=== PATIENT | male | born 1940 | race Caucasian/White ===

== ENCOUNTER 2016-09-01 11:22 | Day surgery (SDC) | payer OTHER ==
[~2016-09-01] VITALS: Ht 165.1 cm; Wt 83.5 kg
[~2016-09-01 11:22] MED LIST: AMLO-147 PO; AMLO5TAB4 PO; ATOR40TA68 PO; BENA40TA54 PO; MONT10TA24 PO; PANT40TA4 PO; PRED20TA PO
[2016-09-01] MEDS ORDERED: ALBU18HF INHALATION (11:53)
[2016-09-01] MEDS ORDERED: CETI5SOL PO (11:53)
[2016-09-01] MEDS ORDERED: PYRI50TA80 PO (11:53)
[2016-09-01] MEDS ORDERED: CYAN500T46 PO (11:53)
[2016-09-01 11:56] VITALS: Ht 165.1 cm; Wt 83.5 kg
[2016-09-01 12:17] VITALS: BP 167/78; PULSE 67; RESP 18
[2016-09-01] MEDS ORDERED: PROPOFOL 40 ML ONE (12:35)
[2016-09-01 13:15] VITALS: BP 146/85; PULSE 62; RESP 20
--- NOTE | 2016-09-01 13:34 | GILP ---
DATE OF PROCEDURE: 09/01/2016 NAME OF PROCEDURE: Esophagogastroduodenoscopy and biopsy. SURGEON: Radha Wray MD PREOPERATIVE DIAGNOSIS: Abdominal pain. POSTOPERATIVE DIAGNOSES: 1. Hiatal hernia. 2. Gastroesophageal reflux disease. 3. Gastritis. 4. 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 5. Nodule on the gastric antrum and biopsies were taken for histopathology. INDICATION FOR THE PROCEDURE: Mr. Andreea Diaz is a 76-year-old male patient who had upper a bdominal pain and nausea not responding to therapy. The patient was scheduled for endoscopic examin [facility] for further evaluation. The procedure and possible complications are well explained to the patient and the family and consen t was obtained. DESCRIPTION OF PROCEDURE: Under the influence of anesthesia, the gastroscope was carefully introduc ed into the esophagus and under direct vision, it was advanced to the stomach and through the pyloru s into the duodenal bulb and descending duodenum. FINDINGS: ESOPHAGUS: The patient had a hiatal hernia and gastroesophageal reflux disease. STOMACH: He had gastritis. He had ulcerative polyp on the gastric antrum and multiple biopsies wer e taken for histopathology. The patient also had a nodule in the gastric antrum and biopsies were t aken. DUODENUM: Normal. He tolerated the procedure very well and there was no complication from the procedure. At the end o f the procedure, he was awake with stable vital signs and he was discharged home to the care of his family. IMPRESSION: Please see postoperative diagnoses. PLAN: 1. Pantoprazole 40 mg p.o. q.a.m. 2. Zantac 300 mg p.o. at bedtime. 3. Await histopathology reports. Dictated By: RADHA REYES/ANDREE Conf#: [id number] DID#: [id number] CC: RADHA WRAY MD;*EndCC*
== END 2016-09-01 13:44 | disposition home or self-care (01) ==
LOC: GIL 11:22
PROVIDERS: ATTEND Internal Medicine Gastroenterology
DX: K29.30 Chronic superficial gastritis without bleeding (principal); K31.7 Polyp of stomach and duodenum; K21.9 Gastro-esophageal reflux disease without esophagitis; E66.9 Obesity, unspecified; Z68.30 Body mass index [BMI] 30.0-30.9, adult
CPT/HCPCS: 43239; 88305; 88312; Z7610

== ENCOUNTER 2016-09-24 16:50 | Emergency (ER) | payer OTHER ==
[~2016-09-24] VITALS: Wt 86.0 kg
[~2016-09-24 16:50] MED LIST changes: +ALBU18HF INHALATION; -AMLO5TAB4 PO; +CETI5SOL PO; +CYAN500T46 PO; -PRED20TA PO; +PYRI50TA80 PO
--- NOTE | 2016-09-24 17:13 | ERA ---
ER Documentation Chief Complaint Date/Time DATE: 09/24/16 TIME: 17:12 Chief Complaint SOB, WHEEZING, COUGH, CHEST PAIN WITH COUGH HPI The patient is a 76-year-old male, presenting to the ER because of shortness of breath for the last 3 days. He went to the clinic and was treated with Levaquin and prednisone. He has intermittent, nonproductive cough. He complains of chest pain that is associated with cough . He denies chest pain with exertion vomiting or diaphoresis. He denies abdominal pain, vomiting, dysuria, diarrhea. He does not smoke, drink Past medical history: Asthma, hypertension, dyslipidemia Past surgical history: None ROS All systems reviewed and are negative except as per history of present illness. Medications Home Meds Active Scripts Amlodipine Besylate* (Amlodipine Besylate*) 10 Mg Tablet, 10 MG PO DAILY, #20 TAB Prov:CORBIN LEWIS DO 11/05/15 Montelukast Sodium* (Montelukast Sodium*) 10 Mg Tablet, 10 MG PO QHS, #30 TAB Prov:SARAH REDDY 05/25/15 Pantoprazole* (Pantoprazole*) 40 Mg Tabec, 40 MG PO DAILY@06 for 30 Days Prov:SARAH REDDY 05/25/15 Benazepril Hcl* (Lotensin*) 40 Mg Tab, 40 MG PO DAILY for 30 Days, TAB Prov:SARAH REDDY 05/25/15 Reported Medications Fluticasone Propionate* (Fluticasone Propionate* Nasal) 50 Mcg/[place]man - 16 Gm [place].susp, 1 SPRAY NASAL BID, #1 BOTTLE TO EACH NOSTRIL 09/24/16 Cetirizine Hcl* (Cetirizine Hcl*) 10 Mg Tablet, 10 MG PO DAILY, #30 TAB 09/24/16 Ranitidine Hcl* (Ranitidine Hcl*) 300 Mg Tablet, 300 MG PO HS, #30 TAB 09/24/16 Ipratropium-Albuterol (Ipratropium-Albuterol) 0.5-3 Mg/3 Ml Ampul.neb, 3 ML INHALATION QID, #30 VIAL 09/24/16 Albuterol Sulfate* (Ventolin HFA*) 18 Gm Hfa.aer.ad, 2 PUFF INHALATION Q4H, #1 INHALER 09/01/16 Discontinued Reported Medications Cyanocobalamin* (Vitamin B12*) 500 Mcg Tab, 500 MCG PO DAILY, TAB 09/01/16 Pyridoxine Hcl (Vitamin B6) 50 Mg Tab, 50 MG PO, TAB 09/01/16 Cetirizine Hcl* (Cetirizine Hcl*) 5 Mg/5 Ml Solution, 10 MG PO DAILY, #300 ML 09/01/16 Atorvastatin* (Atorvastatin*) 40 Mg Tablet, 40 MG PO QHS, #30 TAB 11/05/15 Allergies Allergies: Coded Allergies: Penicillins (Verified Allergy, Unknown, 09/24/16) PMhx/Soc History of Surgery: No Anesthesia Reaction: No Hx Neurological Disorder: No Hx Respiratory Disorders: Yes (asthma took inhaler 08/31) Hx Cardiac Disorders: Yes (htn, high chol) Hx Psychiatric Problems: No Hx Miscellaneous Medical Probl: No Hx Alcohol Use: No Hx Substance Use: No Hx Tobacco Use: No Physical Exam Vitals Vital Signs Date Time Temp Pulse Resp B/P Pulse Ox O2 Delivery O2 Flow Rate FiO2 09/24/16 20:38 97.8 70 14 159/94 97 Room Air 09/24/16 20:36 98.2 67 17 144/87 100 Room Air 09/24/16 19:25 98.2 67 17 144/87 100 Room Air 09/24/16 18:17 Nasal Cannula 2.0 09/24/16 18:17 Nasal Cannula 2 09/24/16 17:59 65 20 99 21 09/24/16 16:54 98.1 72 19 161/75 97 Physical Exam Const: No acute distress. Head: Atraumatic. Eyes: Normal Conjunctiva. ENT: Normal External Ears, Nose and Mouth. Neck: Full range of motion. No meningismus. Resp: Mild bilateral expiratory wheezes Cardio: Regular rate and rhythm, no murmurs. Abd: Soft, non distended, normal bowel sounds, non tender. Skin: No petechiae or rashes. Back: No midline or flank tenderness. Ext: No cyanosis, or edema. Neur: Awake and alert. No focal deficit Psych: Normal Mood and Affect. Result Diagram: 09/24/16 1805 09/24/16 1805 Results 24 hrs Laboratory Tests Test 09/24/16 18:05 09/24/16 21:12 White Blood Count 11.110^3/ul Red Blood Count 4.7410^6/ul Hemoglobin 14.1g/dl Hematocrit 41.0% Mean Corpuscular Volume 86.5fl Mean Corpuscular Hemoglobin 29.7pg Mean Corpuscular Hemoglobin Concent 34.4g/dl Red Cell Distribution Width 13.4% Platelet Count 94565^3/UL Mean Platelet Volume 10.6fl Neutrophils % 57.8% Lymphocytes % 24.5% Monocytes % 11.3% Eosinophils % 4.9% Basophils % 0.5% Nucleated Red Blood Cells % 0.0/100WBC Neutrophils # 6.410^3/ul Lymphocytes # 2.710^3/ul Monocytes # 1.310^3/ul Eosinophils # 0.510^3/ul Basophils # 0.110^3/ul Nucleated Red Blood Cells # 0.010^3/ul Prothrombin Time 12.5Sec Prothrombin Time Ratio 1.0 INR International Normalized Ratio 0.93 Activated Partial Thromboplast Time 24.9Sec Sodium Level 140mmol/L Potassium Level 3.9mmol/L Chloride Level 104mmol/L Carbon Dioxide Level 26mmol/L Anion Gap 14 Blood Urea Nitrogen 19mg/dl Creatinine 1.16mg/dl Glucose Level 86mg/dl Calcium Level 8.5mg/dl Troponin I < 0.012ng/ml < 0.012ng/ml B-Type Natriuretic Peptide 152PG/ML Current Medications Medications (Trade) Dose Ordered Sig/Andrea Route PRN Reason Start Time Stop Time Status Last Admin Dose Admin Ipratropium [place] (Atrovent 0.02% (Neb)) 0.5 mg ONCE STAT INH 09/24/16 17:44 09/24/16 17:46 DC 09/24/16 17:58 Levalbuterol (Xopenex Neb) 1.25 mg ONCE ONCE HHN 09/24/16 18:00 09/24/16 18:01 DC 09/24/16 17:58 Methylprednisolone Sodium Succinate (Solu-Medrol) 125 mg ONCE ONCE IV 09/24/16 20:30 09/24/16 20:31 DC 09/24/16 20:31 Procedures/[place] [id number] Radiology Main Line: [phone] DIAGNOSTIC IMAGING REPORT Patient: JEN DODGENACION : 1940 Age: 76 Sex: M MR #: [id number] [facility] #: [id number] DOS: 09/24/16 1744 Ordering MD: ANNELISE SYED MD Location: E/R Room/Bed: PROCEDURE: XR Chest. CLINICAL INDICATION: Dyspnea. TECHNIQUE: Single frontal view of the chest. COMPARISON: 05/21/2015. FINDINGS: The cardiomediastinal silhouette is within normal limits. Suspected hyperinflation suggests COPD. Changes of centrolobular emphysema. Small calcified granuloma at the right lung base. The lungs are otherwise clear. No signs of pleural fluid or pneumothorax are seen. The osseous structures and soft tissues are unremarkable. IMPRESSION: COPD and emphysema, and otherwise, no acute process in the chest. RPTAT: [facility] Physician Darrin Date Time Electronically viewed and signed by Physician Darrin on 09/24/2016 18:41 RS/ CC: ANNELISE SYED MD EKG: At 4:59 PM read by emergency physician Rate/Rhythm: Normal Sinus Rhythm 71 beats/min QRS, ST, T-waves: No ST elevation, sinus arrhythmia, lateral T abnormality Impression: Abnormal EKG EKG: At 8:09 PM read by emergency physician Rate/Rhythm: Normal Sinus Rhythm 63 beats/min QRS, ST, T-waves: No ST elevation, inferior, lateral T abnormality Impression: Abnormal EK MEDICAL MAKING DECISION: The patient is a 76-year-old male, presenting with acute asthma exacerbation. He was treated with Xopenex 1.25 mg and Atrovent 0.5 mg nebulized and Solu-Medrol 125 mg IV with good response The differential diagnoses considered include but are not limited to asthma, COPD, pneumonia, pulmonary embolus, pleural effusion, congestive heart failure. Departure Diagnosis: Primary Impression: Asthma exacerbation Condition: Good Comments He was advised to continue Levaquin and prednisone I discussed the findings with the patient. I advised the patient to follow-up with the primary physician in about 1-2 days, sooner if needed and return if any concern. ANNELISE SYED MD September 24, 2016 17:13
[2016-09-24] MEDS ORDERED: IPRATROPIUM (NEB) 0.5 MG/2.5 ML AMP INH STA (17:44)
[2016-09-24] MEDS ORDERED: LEVALBUTEROL (NEB) 1.25 MG/0.5 ML AMP HHN ONE (18:00)
[2016-09-24 18:16] LABS: ADD SCAN DIFF NO
[2016-09-24 18:17] LABS: BASOPHIL # 0.1 10^3/ul (0.0-0.1); BASOPHILS % 0.5 % (0.0-2.0); EOSINOPHILS # 0.5 10^3/ul (0.0-0.5); EOSINOPHILS % 4.9 % (0.0-7.0); HEMOGLOBIN 14.1 g/dl (14.0-18.0); LYMPHOCYTES # 2.7 10^3/ul (0.8-2.9); LYMPHOCYTES % 24.5 % (15.0-51.0); MEAN CORPUSCULAR HEMOGLOBIN 29.7 pg (29.0-33.0); MEAN CORPUSCULAR HGB CONC 34.4 g/dl (32.0-37.0); MEAN CORPUSCULAR VOLUME 86.5 fl (82.0-101.0); MEAN PLATELET VOLUME 10.6 fl (7.4-10.4); MONOCYTE # 1.3 10^3/ul (0.3-0.9); MONOCYTES % 11.3 % (0.0-11.0); NEUTROPHIL # 6.4 10^3/ul (1.6-7.5); NEUTROPHILS % 57.8 % (39.0-77.0); PLATELET COUNT 263 10^3/UL (140-415); RED BLOOD COUNT 4.74 10^6/ul (4.70-6.10); RED CELL DISTRIBUTION WIDTH 13.4 % (11.5-14.5); WHITE BLOOD COUNT 11.1 10^3/ul (4.8-10.8)
[2016-09-24 18:33] LABS: CHLORIDE 104 mmol/L (97-110); POTASSIUM 3.9 mmol/L (3.5-5.1); SODIUM 140 mmol/L (135-144)
[2016-09-24] MEDS ORDERED: IPRA3AMP INHALATION (18:33)
[2016-09-24] MEDS ORDERED: RANI300T PO (18:33)
[2016-09-24 18:34] LABS: INR 0.93; PROTIME 12.5 Sec (12.2-14.2)
[2016-09-24] MEDS ORDERED: FLUT16SP17 NASAL (18:34)
[2016-09-24] MEDS ORDERED: CETI-240 PO (18:34)
[2016-09-24 18:35] LABS: PARTIAL THROMBOPLASTIN TIME 24.9 Sec (25.0-35.0)
[2016-09-24 18:36] LABS: ANION GAP 14 (8-16); CARBON DIOXIDE 26 mmol/L (21-31); CREATININE 1.16 mg/dl (0.61-1.24)
[2016-09-24 18:37] LABS: BLOOD UREA NITROGEN 19 mg/dl (7-20); CALCIUM 8.5 mg/dl (8.4-10.2); GLUCOSE 86 mg/dl (70-220)
--- NOTE | 2016-09-24 18:41 | RADRPT ---
PROCEDURE: XR Chest. CLINICAL INDICATION: Dyspnea. TECHNIQUE: Single frontal view of the chest. COMPARISON: 05/21/2015. FINDINGS: The cardiomediastinal silhouette is within normal limits. Suspected hyperinflation suggests COPD. C hanges of centrolobular emphysema. Small calcified granuloma at the right lung base. The lungs are o therwise clear. No signs of pleural fluid or pneumothorax are seen. The osseous structures and soft tissues are unremarkable. IMPRESSION: COPD and emphysema, and otherwise, no acute process in the chest. RPTAT: [facility] Physician Darrin Date Time Electronically viewed and signed by Physician Darrin on 09/24/2016 18:41 RS/
[2016-09-24 18:46] LABS: B-TYPE NATRIURETIC PEPTIDE 152 PG/ML (0-450)
[2016-09-24 19:00] LABS: TROPONIN-I < 0.012 ng/ml (0.00-0.12)
[2016-09-24] MEDS ORDERED: METHYLPREDNISOLONE 125 MG INJ IV ONE (20:30)
[2016-09-24 22:25] VITALS: BP 155/82; PULSE 84; RESP 12; TEMP 98
== END 2016-09-24 22:25 | disposition home or self-care (01) ==
LOC: E/R 16:50
DX: J45.901 Unspecified asthma with (acute) exacerbation (principal); I10 Essential (primary) hypertension
CPT/HCPCS: 36415; 71010; 80048; 83880; 84484; 85025; 85610; 85730; 94664; 96374; J2930; Z7502; Z7610; 93005

== ENCOUNTER 2018-09-24 12:51 | Inpatient (IN) | payer OTHER ==
[~2018-09-24] VITALS: Ht 182.9 cm; Wt 82.9 kg
[~2018-09-24 12:51] MED LIST changes: -ATOR40TA68 PO; +CETI10TA19 PO; -CETI5SOL PO; -CYAN500T46 PO; +FLUT16SP17 NASAL; +IPRA3AMP29 INHALATION; -PYRI50TA80 PO; +RANI300T PO
[2018-09-24] MEDS ORDERED: ALBUTEROL 0.083% (NEB) 2.5 MG/3 ML AMP NEB STA ×2 (14:01→15:46)
[2018-09-24] MEDS ORDERED: IPRATROPIUM (NEB) 0.5 MG/2.5 ML AMP NEB STA ×2 (14:01→15:46)
[2018-09-24] MEDS ORDERED: ALBU18HF INHALATION (15:40)
[2018-09-24] MEDS ORDERED: LEVO500T48 PO (15:40)
--- NOTE | 2018-09-24 15:42 | ERD ---
ER Documentation Chief Complaint Chief Complaint cough , chest congestion x 1 week h/o asthma HPI 78-year-old male presents for cough and chest congestion x1 week. Patient does have a history of asthma. He also has a history of hypertension and hyperlipidemia. The cough is noted to be productive of phlegm. Patient also has subjective fever. Patient does have albuterol and a steroid inhaler which has not been helping much. Denies any vomiting or diarrhea. Denies chest pain or shortness of breath. Denies abdominal pain. No other modifying factors noted, no other treatments tried at home. ROS All systems reviewed and are negative except as per history of present illness. Medications Home Meds Active Scripts Albuterol Sulfate* (Ventolin HFA*) 18 Gm Hfa.aer.ad, 2 PUFF INHALATION Q4H PRN for cough/shortness of breath, #1 INHALER Prov:ANNELISE AGUAYO DO 09/24/18 Levofloxacin* (Levaquin*) 500 Mg Tablet, 500 MG PO DAILY for 7 Days, #7 TAB Prov:ANNELISE AGUAYO DO 09/24/18 Amlodipine Besylate* (Amlodipine Besylate*) 10 Mg Tablet, 10 MG PO DAILY, #20 TAB Prov:CORBIN LEWIS DO 11/05/15 Montelukast Sodium* (Montelukast Sodium*) 10 Mg Tablet, 10 MG PO QHS, #30 TAB Prov:SARAH REDDY TELEVISION ENGINEER 05/25/15 Pantoprazole* (Pantoprazole*) 40 Mg Tabec, 40 MG PO DAILY@06 for 30 Days Prov:SARAH REDDY TELEVISION ENGINEER 05/25/15 Benazepril Hcl* (Lotensin*) 40 Mg Tab, 40 MG PO DAILY for 30 Days, TAB Prov:SARAH REDDY TELEVISION ENGINEER 05/25/15 Reported Medications Fluticasone Propionate* (Fluticasone Propionate* Nasal) 50 Mcg/[place] - 16 Gm [place].susp, 1 SPRAY NASAL BID, #1 BOTTLE TO EACH NOSTRIL 09/24/16 Cetirizine Hcl* (Cetirizine Hcl*) 10 Mg Tablet, 10 MG PO DAILY, #30 TAB 09/24/16 Ranitidine Hcl* (Ranitidine Hcl*) 300 Mg Tablet, 300 MG PO HS, #30 TAB 09/24/16 Ipratropium-Albuterol (Ipratropium-Albuterol) 0.5-3 Mg/3 Ml Ampul.neb, 3 ML INHALATION QID, #30 VIAL 09/24/16 Albuterol Sulfate* (Ventolin HFA*) 18 Gm Hfa.aer.ad, 2 PUFF INHALATION Q4H, #1 INHALER 09/01/16 Allergies Allergies: Coded Allergies: Penicillins (Verified Allergy, Unknown, 09/24/16) PMhx/Soc Medical and Surgical Hx: pt denies Surgical Hx History of Surgery: No Anesthesia Reaction: No Hx Neurological Disorder: No Hx Respiratory Disorders: Yes (asthma took inhaler 08/31) Hx Cardiac Disorders: Yes (htn, high chol) Hx Psychiatric Problems: No Hx Miscellaneous Medical Probl: No Hx Alcohol Use: No Hx Substance Use: No Hx Tobacco Use: No Smoking Status: Never smoker FmHx Family History: No coronary disease Physical Exam Vitals Vital Signs Date Temp Pulse Resp B/P (MAP) Pulse Ox O2 O2 Flow FiO2 Time Delivery Rate 09/24/18 85 20 131/60 93 Nasal 2.5 18:23 (83) Cannula 09/24/18 83 28 92 Nasal 3.0 16:00 Cannula 09/24/18 99.1 85 20 175/74 91 Room Air 15:47 (107) 09/24/18 69 28 93 21 14:17 09/24/18 98.2 69 18 165/74 96 12:54 (104) Physical Exam Const: No acute distress Head: Atraumatic Eyes: Normal Conjunctiva ENT: Normal External Ears, bilateral tympanic membrane intact without erythema or bulging noted, nose and Mouth examination normal, no tonsillar swelling or exudate noted Neck: Full range of motion. No meningismus. Resp: Diffuse wheezing and mild crackles noted on examination, no use of accessory muscles Cardio: Regular rate and rhythm, no murmurs Abdomen: Soft, nontender, nondistended, positive bowel sounds in all quadrants Skin: No petechiae or rashes Ext: No cyanosis, or edema Neur: Awake and alert, bilateral upper and lower extremity sensation intact Psych: Normal Mood and Affect Result Diagram: 09/24/18 1638 09/24/18 1638 Results 24 hrs Laboratory Tests Test 09/24/18 16:38 White Blood Count 21.7 10^3/ul Red Blood Count 4.56 10^6/ul Hemoglobin 14.0 g/dl Hematocrit 41.5 % Mean Corpuscular Volume 91.0 fl Mean Corpuscular Hemoglobin 30.7 pg Mean Corpuscular Hemoglobin Concent 33.7 g/dl Red Cell Distribution Width 13.2 % Platelet Count 196 10^3/UL Mean Platelet Volume 11.7 fl Immature Granulocytes % 0.700 % Neutrophils % 83.3 % Lymphocytes % 9.7 % Monocytes % 5.9 % Eosinophils % 0.0 % Basophils % 0.4 % Nucleated Red Blood Cells % 0.0 /100WBC Immature Granulocytes # 0.150 10^3/ul Neutrophils # 18.1 10^3/ul Lymphocytes # 2.1 10^3/ul Monocytes # 1.3 10^3/ul Eosinophils # 0.0 10^3/ul Basophils # 0.1 10^3/ul Nucleated Red Blood Cells # 0.0 10^3/ul Sodium Level 138 mmol/L Potassium Level 3.5 mmol/L Chloride Level 102 mmol/L Carbon Dioxide Level 24 mmol/L Anion Gap 12 Blood Urea Nitrogen 22 mg/dl Creatinine 1.02 mg/dl Est Glomerular Filtrat Rate mL/min mL/min Glucose Level 139 mg/dl Calcium Level 8.9 mg/dl Total Bilirubin 2.1 mg/dl Direct Bilirubin 0.00 mg/dl Indirect Bilirubin 2.1 mg/dl Aspartate Amino Transf (AST/SGOT) 33 IU/L Alanine Aminotransferase (ALT/SGPT) 27 IU/L Alkaline Phosphatase 71 IU/L Total Protein 7.7 g/dl Albumin 4.3 g/dl Globulin 3.40 g/dl Albumin/Globulin Ratio 1.26 Current Medications Medications Dose Sig/Andrea Start Time Status Last (Trade) Ordered Route PRN Stop Time Admin Dose Reason Admin Albuterol 5 mg ONCE STAT 09/24/18 DC 09/24/18 (Proventil NEB 14:01 14:16 0.083% (Neb)) 09/24/18 14:02 Ipratropium 0.5 mg ONCE STAT 09/24/18 DC 09/24/18 Bent NEB 14:01 14:16 (Atrovent 09/24/18 14:02 0.02% (Neb)) Albuterol 5 mg ONCE STAT 09/24/18 DC 09/24/18 (Proventil NEB 15:46 15:59 0.083% (Neb)) 09/24/18 15:47 Ipratropium 0.5 mg ONCE STAT 09/24/18 DC 09/24/18 Bent NEB 15:46 16:00 (Atrovent 09/24/18 15:47 0.02% (Neb)) 650 mg ONCE ONCE 09/24/18 DC 09/24/18 Acetaminophen PO 16:00 15:57 (Tylenol 09/24/18 16:01 Tab) 100 ml @ ONCE ONCE 09/24/18 DC 09/24/18 Levofloxacin/ 100 mls/hr IVPB 16:30 16:39 Dextrose 09/24/18 17:29 Lorazepam 0.5 mg ONCE ONCE 09/24/18 DC 09/24/18 (Ativan) PO 19:00 18:59 09/24/18 19:01 Ondansetron 4 mg ER BRIDGE 09/24/18 HCl (Zofran PRN IV 21:00 Inj) NAUSEA/VOMITI 09/25/18 20:59 NG 650 mg ER BRIDGE 09/24/18 Acetaminophen PRN PO 21:00 (Tylenol .MILD PAIN 09/25/18 20:59 Tab) 1-3 OR TEMP Procedures/MDM Medical Decision Making: Differential diagnosis includes but not limited to upper respiratory infection, pneumonia, sepsis, meningitis, influenza. Patient appeared well on physical examination, nontoxic appearing. Patient did have diffuse wheezing and some crackles on physical examination ER course: Patient was started on breathing treatments CBC: no e/o of severe anemia, WBC 21 CMP: no e/o severe acidosis, alkalosis, renal failure, diabetic ketoacidosis, liver disease UA negative for infection Chest X-ray 1V Interpreted by me: Soft Tissue: Bilateral lower lobe opacities noted consistent with pneumonia Bones: No acute abnormalities Mediastinum/Cardiac Silhouette/Lungs: No acute abnormalities EKG: Rate/Rhythm: Normal Sinus Rhythm QRS, ST, T-waves: No changes consistent w/ acute ischemia Impression: No evidence of ischemia or arrhythmia Patient was started on IV Levaquin Patient was placed on a pulse ox. Noted to have saturation in the low 90s. He was given 2 breathing treatments in the ER however his saturations continue to be in the low 90s. Given the elevated WBC as well as pneumonia on chest x-ray and patient's age, hospitalist team was called for admission inbound call center representative hospitalist Dr. Marin agreed to admit patient for further care. Disclaimer: Inadvertent spelling and grammatical errors are likely due to EHR/dictation software use and do not reflect on the overall quality of patient care. Also, please note that the electronic time recorded on this note does not necessarily reflect the actual time of the patient encounter. Departure Diagnosis: Primary Impression: Pneumonia Pneumonia type: due to unspecified organism Laterality: unspecified laterality Lung location: unspecified part of lung Qualified Codes: J18.9 - Pneumonia, unspecified organism Additional Impression: Asthma exacerbation Asthma severity: unspecified severity Asthma persistence: unspecified Qualified Codes: J45.901 - Unspecified asthma with (acute) exacerbation Condition: Fair Patient Instructions: Asthma Medications, Pneumonia (Adult) Additional Instructions: Llame al doctor MAANA y charlotte yifan RAMIRO PARA DENTRO DE 1-2 BARROS.Dgale a la secretaria que nosotros le instruimos hacer esta ramiro.Avise o llame si whaley condicin se empeora antes de la ramiro. Regresa aqui si peor o no mejor. ANNELISE AGUAYO DO September 24, 2018 15:42
[2018-09-24] MEDS ORDERED: ACETAMINOPHEN 325 MG TAB PO ONE (16:00)
[2018-09-24] MEDS ORDERED: LEVOFLOXACIN 500MG/D5W (PMX) 100 ML IVPB ONE (16:30)
[2018-09-24] MEDS ORDERED: LORAZEPAM 0.5 MG TAB PO ONE (19:00)
[2018-09-24] MEDS ORDERED: ONDANSETRON 4 MG INJ IV PRN (21:00)
[2018-09-24] MEDS ORDERED: ACETAMINOPHEN 325 MG TAB PO PRN (21:00)
[2018-09-24 22:27] VITALS: PULSE 105
[2018-09-24] MEDS ORDERED: CHOL100062 PO (22:55)
[2018-09-24] MEDS ORDERED: HYDR-3671 PO (22:55)
[2018-09-24] MEDS ORDERED: ATOR40TA68 PO (22:55)
[2018-09-24] MEDS ORDERED: CLON0.2T5 PO (22:55)
[2018-09-24 23:00] VITALS: BP 142/62; PULSE 104; RESP 20
[2018-09-24 23:17] VITALS: Ht 182.9 cm; Wt 82.9 kg
[2018-09-25] VITALS (12 sets, daily range): BP systolic 120–152; BP diastolic 59–74; PULSE 72–97; RESP 18–20
[2018-09-25] MEDS: IPRATROPIUM (NEB) 0.5 MG/2.5 ML AMP HHN PRN ×2 (00:41→05:20)
[2018-09-25] MEDS: LEVALBUTEROL (NEB) 0.63 MG/3 ML AMP HHN PRN ×2 (00:41→05:20)
[2018-09-25] MEDS: ACETAMINOPHEN 325 MG TAB PO PRN ×2 (05:30→20:48)
--- NOTE | 2018-09-25 08:21 | HP ---
Date/Time of Note Date/Time of Note DATE: 09/25/18 TIME: 08:18 Assessment/Plan VTE Prophylaxis Risk score (from Ns)>0 risk: 4 SCD applied (from Ns): Yes Pharmacological prophylaxis: heparin Lines/Catheters IV [facility] [place] Assessment/Plan Assessment/Plan 1. Sepsis, secondary to pneumonia -IV antibiotic, IV fluid -Follow-up culture results 2. Hypertension: BP is in acceptable range. Continue meds 3. Asthma: Bronchodilators, supplemental oxygen. As needed steroid 4. Dyslipidemia: Continue statin Result Diagram: 09/24/18 1638 09/24/18 1638 Results 24hrs Laboratory Tests Test 09/24/18 16:38 09/24/18 20:25 White Blood Count 21.7 #H Red Blood Count 4.56 L Hemoglobin 14.0 Hematocrit 41.5 L Mean Corpuscular Volume 91.0 Mean Corpuscular Hemoglobin 30.7 Mean Corpuscular Hemoglobin Concent 33.7 Red Cell Distribution Width 13.2 Platelet Count 196 # Mean Platelet Volume 11.7 H Immature Granulocytes % 0.700 H Neutrophils % 83.3 H Lymphocytes % 9.7 L Monocytes % 5.9 Eosinophils % 0.0 Basophils % 0.4 Nucleated Red Blood Cells % 0.0 Immature Granulocytes # 0.150 H Neutrophils # 18.1 H Lymphocytes # 2.1 Monocytes # 1.3 H Eosinophils # 0.0 Basophils # 0.1 Nucleated Red Blood Cells # 0.0 Sodium Level 138 Potassium Level 3.5 Chloride Level 102 Carbon Dioxide Level 24 Anion Gap 12 Blood Urea Nitrogen 22 H Creatinine 1.02 Est Glomerular Filtrat Rate mL/min Glucose Level 139 Calcium Level 8.9 Total Bilirubin 2.1 H Direct Bilirubin 0.00 Indirect Bilirubin 2.1 H Aspartate Amino Transf (AST/SGOT) 33 Alanine Aminotransferase (ALT/SGPT) 27 Alkaline Phosphatase 71 Total Protein 7.7 Albumin 4.3 Globulin 3.40 H Albumin/Globulin Ratio 1.26 Urine Color YELLOW Urine Clarity CLEAR Urine pH 5.0 Urine Specific [place] 1.024 Urine Ketones NEGATIVE Urine Nitrite NEGATIVE Urine Bilirubin NEGATIVE Urine Urobilinogen NEGATIVE Urine Leukocyte Esterase NEGATIVE Urine Hemoglobin NEGATIVE Urine Glucose NEGATIVE Urine Total Protein NEGATIVE HPI/ROS Admit Date/Time Admit Date/Time September 24, 2018 at 20:57 Hx of Present Illness This is a 78-year-old male with a history of hypertension, dyslipidemia, asthma who presented to ER for shortness of breath, congestion, fever. While he was in the ER, he was febrile with a temperature of almost 103. WBC 22,000. Chest x- ray shows bilateral lower lobe airspace opacities may represent atelectasis or pneumonia. PMH/Family/Social Past Medical History Medical History: high cholesterol, hypertension, other (Asthma) Medications Current Medications Levalbuterol (Xopenex Neb) 0.63 mg Q4H RESP THERAPY PRN HHN desaturat Last administered on 09/25/18at 05:20; Admin Dose 0.63 MG; Start 09/25/18 at 00:00 Ipratropium [place] (Atrovent 0.02% (Neb)) 0.5 mg Q4H RESP THERAPY PRN HHN SHORTNESS OF BREATH Last administered on 09/25/18at 05:20; Admin Dose 0.5 MG; Start 09/25/18 at 00:00 Acetaminophen (Tylenol Tab) 650 mg Q6H PRN PO MILD PAIN(1-3)OR ELEVATED TEMP Last administered on 09/25/18at 05:30; Admin Dose 650 MG; Start 09/25/18 at 05:17 IV Flush (NS 3 ml) 3 ml PER PROTOCOL IV ; Start 09/25/18 at 08:30; Status UNV Ondansetron HCl (Zofran Inj) 4 mg Q6H PRN IV NAUSEA/VOMITING; Start 09/25/18 at 08:30; Status UNV Heparin Sodium (Porcine) (Heparin (5000 Units/1ml)) 5,000 unit Q12 SC ; Start 09/25/18 at 09:00; Status UNV Albuterol/ Ipratropium (Duoneb) 3 ml Q2H RESP THERAPY PRN HHN SHORTNESS OF BREATH; Start 09/25/18 at 08:30; Status UNV Amlodipine Besylate (Norvasc) 10 mg DAILY PO ; Start 09/25/18 at 09:00; Status UNV Atorvastatin Calcium (Lipitor) 20 mg DAILY PO ; Start 09/25/18 at 09:00; Status UNV Benazepril HCl (Lotensin) 40 mg DAILY PO ; Start 09/25/18 at 09:00; Status UNV Fluticasone Propionate (Flonase 0.05% Nasal) 1 spray BID NASAL ; Start 09/25/18 at 09:00; Status UNV Montelukast Sodium (Singulair) 10 mg QHS PO ; Start 09/25/18 at 21:00; Status UNV Pantoprazole (Protonix Tab) 40 mg DAILY@06 PO ; Start 09/26/18 at 06:00; Status UNV Ranitidine HCl (Zantac) 300 mg HS PO ; Start 09/25/18 at 21:00; Status UNV Levofloxacin/ Dextrose 100 ml @ 100 mls/hr Q24H IVPB ; Start 09/25/18 at 08:30; Status UNV Coded Allergies: Penicillins (Verified Allergy, Unknown, 09/24/16) Past Surgical History Past Surgical Hx: other (See HPI) Family History Significant Family History: no pertinent family hx Social History Alcohol Use: none Smoking Status: Never smoker Drug Use: none Exam/Review of Systems Vital Signs Vitals Vital Signs Date Temp Pulse Resp B/P (MAP) Pulse Ox O2 O2 Flow FiO2 Time Delivery Rate 09/25/18 Nasal 5.0 07:28 Cannula 09/25/18 97.6 82 20 142/74 95 07:26 (96) 09/24/18 21 14:17 Intake and Output 09/24/18 09/24/18 09/25/18 1414:59 22:59 06:59 IntakeIntake Total 100 ml BalanceBalance 100 ml Exam Constitutional: other (No acute distress) Head: normocephalic, atraumatic Eyes: PERRL Respiratory: other (Decreased breath sounds at the bases) Cardiovascular: regular rate and rhythm, nl pulses Gastrointestinal: soft Extremities: normal pulses JT PAGE MD September 25, 2018 08:21
[2018-09-25] MEDS ORDERED: NACL 0.9% 3 ML SYG IV SCH (08:30)
[2018-09-25] MEDS ORDERED: SOD CHLORIDE 0.9% 1,000 ML IV SCH (08:30)
[2018-09-25] MEDS ORDERED: ONDANSETRON 4 MG INJ IV PRN (08:30)
[2018-09-25] MEDS: BENAZEPRIL 40 MG TAB PO SCH (08:59)
[2018-09-25] MEDS: AMLODIPINE 10 MG TAB PO SCH (08:59)
[2018-09-25] MEDS: ATORVASTATIN 20 MG TAB PO SCH (08:59)
[2018-09-25] MEDS: HEPARIN 5,000 UNIT/1 ML VIAL SC SCH ×2 (10:02→20:52)
[2018-09-25] MEDS: FLUTICASONE 0.05% 16 GM NAS SPRAY NASAL SCH ×2 (10:03→20:47)
[2018-09-25] MEDS: ALBUTEROL/IPRATROPIUM (NEB) 3 ML AMP HHN PRN (10:24)
--- NOTE | 2018-09-25 14:42 | PN ---
Date/Time of Note Date/Time of Note DATE: 09/25/18 TIME: 14:40 Assessment/Plan VTE Prophylaxis Risk score (from Ns)>0 risk: 4 SCD applied (from [facility] [place]): No SCD contraindicated: other Pharmacological prophylaxis: heparin Lines/Catheters IV Catheter Type (from [facility]): Saline Lock Assessment/Plan Hospital Course SUBJECTIVE: Lying in bed, on 2 L oxygen via nasal cannula. No shortness of br eath. Having mild nonproductive cough. OBJECTIVE: Vital signs-see below PHYSICAL EXAM: Constitutional: Adequately built,not in acute distress. HEENT: Head atraumatic and normocephalic. Eyes: Extraocular muscles intact. Anicteric sclerae. Pupils equal bilaterally, reactive to light. NECK: Supple without lymph node. CHEST: Slight wheezing bilaterally, expiratory. Diminished bibasilar. No wheez ing. No rhonchi. HEART: S1, S2. Regular rate and rhythm. ABDOMEN: Soft/non tender with no rebound tenderness. Bowel sounds were present. EXTREMITIES: No cyanosis, clubbing or edema. NEUROLOGIC: Alert and oriented x3. No focal deficit. No sensory deficit. PSYCHOSOCIAL: No signs of depression. INTEGUMENTARY: No open wounds. ASSESSMENT AND PLAN:78 yo M w/htn,asthma,dlp, here with S OB/productive c ough/chest congestion x1 week, found to have pneumonia/sepsis Sepsis, likely secondary to pneumonia -Clinically improving. Continue antibiotics and follow final cultures. -Continue PRN breathing treatments. -Add cough medications Hypoxemic respiratory failure likely secondary to pneumonia/asthma exacerbation -Improving. On oxygen via nasal cannula currently. Essential hypertension -Stable. Continue CCB/GUY inhibitors Asthma with mild exacerbation -We will add low-dose steroids. -Continue breathing treatments/ICH/Singulair Dyslipidemia -On statin DVT prophylaxis: Heparin. Disposition: Continue current management. Await for further clinical improvement. Patient is seen in collaboration with Dr. Natarajan. Result Diagram: 09/25/18 0910 09/25/18 0910 Results 24hrs Laboratory Tests Test 09/24/18 16:38 09/24/18 20:25 09/25/18 09:10 White Blood Count 21.7 #H 20.8 H Red Blood Count 4.56 L 4.39 L Hemoglobin 14.0 13.3 L Hematocrit 41.5 L 39.9 L Mean Corpuscular Volume 91.0 90.9 Mean Corpuscular Hemoglobin 30.7 30.3 Mean Corpuscular Hemoglobin Concent 33.7 33.3 Red Cell Distribution Width 13.2 13.5 Platelet Count 196 # 181 Mean Platelet Volume 11.7 H 11.9 H Immature Granulocytes % 0.700 H 1.800 H Neutrophils % 83.3 H 87.5 H Lymphocytes % 9.7 L 6.7 L Monocytes % 5.9 3.7 Eosinophils % 0.0 0.0 Basophils % 0.4 0.3 Nucleated Red Blood Cells % 0.0 0.0 Immature Granulocytes # 0.150 H 0.380 H Neutrophils # 18.1 H 18.1 H Lymphocytes # 2.1 1.4 Monocytes # 1.3 H 0.8 Eosinophils # 0.0 0.0 Basophils # 0.1 0.1 Nucleated Red Blood Cells # 0.0 0.0 Sodium Level 138 136 Potassium Level 3.5 3.5 Chloride Level 102 102 Carbon Dioxide Level 24 24 Anion Gap 12 10 Blood Urea Nitrogen 22 H 24 H Creatinine 1.02 1.07 Est Glomerular Filtrat Rate mL/min Glucose Level 139 142 Calcium Level 8.9 8.7 Total Bilirubin 2.1 H 2.2 H Direct Bilirubin 0.00 0.00 Indirect Bilirubin 2.1 H 2.2 H Aspartate Amino Transf (AST/SGOT) 33 35 Alanine Aminotransferase (ALT/SGPT) 27 19 Alkaline Phosphatase 71 66 Total Protein 7.7 6.8 Albumin 4.3 3.5 Globulin 3.40 H 3.30 H Albumin/Globulin Ratio 1.26 1.06 Urine Color YELLOW Urine Clarity CLEAR Urine pH 5.0 Urine Specific [place] 1.024 Urine Ketones NEGATIVE Urine Nitrite NEGATIVE Urine Bilirubin NEGATIVE Urine Urobilinogen NEGATIVE Urine Leukocyte Esterase NEGATIVE Urine Hemoglobin NEGATIVE Urine Glucose NEGATIVE Urine Total Protein NEGATIVE Exam/Review of Systems Exam Vitals Vital Signs Date Temp Pulse Resp B/P (MAP) Pulse Ox O2 O2 Flow FiO2 Time Delivery Rate 09/25/18 89 12:00 09/25/18 98.3 20 152/71 94 Nasal 11:26 (98) Cannula 09/25/18 5.0 10:24 09/24/18 21 14:17 Intake and Output 09/24/18 09/24/18 09/25/18 1515:00 23:00 07:00 IntakeIntake Total 100 ml BalanceBalance 100 ml Results Results 24hrs Laboratory Tests Test 09/24/18 16:38 09/24/18 20:25 09/25/18 09:10 White Blood Count 21.7 #H 20.8 H Red Blood Count 4.56 L 4.39 L Hemoglobin 14.0 13.3 L Hematocrit 41.5 L 39.9 L Mean Corpuscular Volume 91.0 90.9 Mean Corpuscular Hemoglobin 30.7 30.3 Mean Corpuscular Hemoglobin Concent 33.7 33.3 Red Cell Distribution Width 13.2 13.5 Platelet Count 196 # 181 Mean Platelet Volume 11.7 H 11.9 H Immature Granulocytes % 0.700 H 1.800 H Neutrophils % 83.3 H 87.5 H Lymphocytes % 9.7 L 6.7 L Monocytes % 5.9 3.7 Eosinophils % 0.0 0.0 Basophils % 0.4 0.3 Nucleated Red Blood Cells % 0.0 0.0 Immature Granulocytes # 0.150 H 0.380 H Neutrophils # 18.1 H 18.1 H Lymphocytes # 2.1 1.4 Monocytes # 1.3 H 0.8 Eosinophils # 0.0 0.0 Basophils # 0.1 0.1 Nucleated Red Blood Cells # 0.0 0.0 Sodium Level 138 136 Potassium Level 3.5 3.5 Chloride Level 102 102 Carbon Dioxide Level 24 24 Anion Gap 12 10 Blood Urea Nitrogen 22 H 24 H Creatinine 1.02 1.07 Est Glomerular Filtrat Rate mL/min Glucose Level 139 142 Calcium Level 8.9 8.7 Total Bilirubin 2.1 H 2.2 H Direct Bilirubin 0.00 0.00 Indirect Bilirubin 2.1 H 2.2 H Aspartate Amino Transf (AST/SGOT) 33 35 Alanine Aminotransferase (ALT/SGPT) 27 19 Alkaline Phosphatase 71 66 Total Protein 7.7 6.8 Albumin 4.3 3.5 Globulin 3.40 H 3.30 H Albumin/Globulin Ratio 1.26 1.06 Urine Color YELLOW Urine Clarity CLEAR Urine pH 5.0 Urine Specific [place] 1.024 Urine Ketones NEGATIVE Urine Nitrite NEGATIVE Urine Bilirubin NEGATIVE Urine Urobilinogen NEGATIVE Urine Leukocyte Esterase NEGATIVE Urine Hemoglobin NEGATIVE Urine Glucose NEGATIVE Urine Total Protein NEGATIVE Medications Medication Current Medications Levalbuterol (Xopenex Neb) 0.63 mg Q4H RESP THERAPY PRN HHN desaturat Last administered on 09/25/18 05:20; Admin Dose 0.63 MG; Start 09/25/18 at 00:00 Ipratropium [place] (Atrovent 0.02% (Neb)) 0.5 mg Q4H RESP THERAPY PRN HHN SHORTNESS OF BREATH Last administered on 09/25/18 05:20; Admin Dose 0.5 MG; Start 09/25/18 at 00:00 Acetaminophen (Tylenol Tab) 650 mg Q6H PRN PO MILD PAIN(1-3)OR ELEVATED TEMP Last administered on 09/25/18 05:30; Admin Dose 650 MG; Start 09/25/18 at 05:17 IV Flush (NS 3 ml) 3 ml PER PROTOCOL IV ; Start 09/25/18 at 08:30 Ondansetron HCl (Zofran Inj) 4 mg Q6H PRN IV NAUSEA/VOMITING; Start 09/25/18 at 08:30 Heparin Sodium (Porcine) (Heparin (5000 Units/1ml)) 5,000 unit Q12 SC Last administered on 09/25/18 10:02; Admin Dose 5,000 UNIT; Start 09/25/18 at 09:00 Albuterol/ Ipratropium (Duoneb) 3 ml Q2H RESP THERAPY PRN HHN SHORTNESS OF BREATH Last administered on 09/25/18 10:24; Admin Dose 3 ML; Start 09/25/18 at 09:00 Amlodipine Besylate (Norvasc) 10 mg DAILY PO Last administered on 09/25/18 08:59; Admin Dose 10 MG; Start 09/25/18 at 09:00 Atorvastatin Calcium (Lipitor) 20 mg DAILY PO Last administered on 09/25/18 08:59; Admin Dose 20 MG; Start 09/25/18 at 09:00 Benazepril HCl (Lotensin) 40 mg DAILY PO Last administered on 09/25/18 08:59; Admin Dose 40 MG; Start 09/25/18 at 09:00 Fluticasone Propionate (Flonase 0.05% Nasal) 1 spray BID NASAL Last administered on 09/25/18 10:03; Admin Dose 1 SPRAY; Start 09/25/18 at 09:00 Montelukast Sodium (Singulair) 10 mg QHS PO ; Start 09/25/18 at 21:00 Pantoprazole (Protonix Tab) 40 mg DAILY@06 PO ; Start 09/26/18 at 06:00 Ranitidine HCl (Zantac) 300 mg HS PO ; Start 09/25/18 at 21:00 Levofloxacin/ Dextrose 100 ml @ 100 mls/hr Q24H IVPB ; Start 09/25/18 at 16:00 Sodium Chloride 1,000 ml @ 100 mls/hr Q10H IV Last administered on 09/25/18at 08:59; Admin Dose 100 MLS/HR; Start 09/25/18 at 08:30 ROSALIND CORNEJO NP September 25, 2018 14:42
[2018-09-25] MEDS: predniSONE 20 MG TAB PO SCH (15:07)
[2018-09-25] MEDS: LEVOFLOXACIN 500MG/D5W (PMX) 100 ML IVPB SCH (15:07)
[2018-09-25] MEDS: MONTELUKAST 10 MG TAB PO SCH (20:47)
[2018-09-25] MEDS: GUAIFENESIN/DM (SR) TAB PO SCH (20:47)
[2018-09-25] MEDS ORDERED: RANITIDINE 150 MG TAB PO SCH (21:00)
[2018-09-25] MEDS ORDERED: FUROSEMIDE 20 MG INJ ONE (22:52)
[2018-09-26] VITALS (10 sets, daily range): BP systolic 136–168; BP diastolic 59–85; PULSE 69–83; RESP 16–20
[2018-09-26] MEDS: PANTOPRAZOLE (EC) 40 MG TAB PO SCH (06:27)
[2018-09-26] MEDS: AMLODIPINE 10 MG TAB PO SCH (07:58)
[2018-09-26] MEDS: FLUTICASONE 0.05% 16 GM NAS SPRAY NASAL SCH ×2 (07:58→21:18)
[2018-09-26] MEDS: GUAIFENESIN/DM (SR) TAB PO SCH ×2 (07:58→21:18)
[2018-09-26] MEDS: BENAZEPRIL 40 MG TAB PO SCH (07:59)
[2018-09-26] MEDS: predniSONE 20 MG TAB PO SCH (07:59)
[2018-09-26] MEDS: ATORVASTATIN 20 MG TAB PO SCH (07:59)
[2018-09-26] MEDS: HEPARIN 5,000 UNIT/1 ML VIAL SC SCH ×2 (08:05→21:25)
--- NOTE | 2018-09-26 12:22 | PN ---
Date/Time of Note Date/Time of Note DATE: 09/26/18 TIME: 12:16 Assessment/Plan VTE Prophylaxis Risk score (from [facility] [place])>0 risk: 4 SCD applied (from [facility] [place]): No SCD contraindicated: other Pharmacological prophylaxis: heparin Lines/Catheters IV Catheter Type (from [place]): Saline Lock Assessment/Plan Hospital Course SUBJECTIVE: Today patient with wheezing and mild shortness of breath. OBJECTIVE: Vital signs-see below PHYSICAL EXAM: Constitutional: Adequately built,not in acute distress. HEENT: Head atraumatic and normocephalic. Eyes: Extraocular muscles intact. Anicteric sclerae. Pupils equal bilaterally, reactive to light. NECK: Supple without lymph node. CHEST:wheezing bilaterally, expiratory. Diminished bibasilar. No wheezing. No rhonchi. HEART: S1, S2. Regular rate and rhythm. ABDOMEN: Soft/non tender with no rebound tenderness. Bowel sounds were present. EXTREMITIES: No cyanosis, clubbing or edema. NEUROLOGIC: Alert and oriented x3. No focal deficit. No sensory deficit. PSYCHOSOCIAL: No signs of depression. INTEGUMENTARY: No open wounds. ASSESSMENT AND PLAN:78 yo M w/htn,asthma,dlp, here with S OB/productive cough/chest congestion x1 week, found to have pneumonia/sepsis Sepsis, likely secondary to pneumonia -Clinically improving. Please note leukocytosis could be also part of patient receiving steroids. Continue antibiotics and follow final cultures. -Continue PRN breathing treatments. -Add cough medications Hypoxemic respiratory failure likely secondary to pneumonia/asthma exacerbation -pt still requires supplemental oxygen. -Get room air oxygen saturation -IV steroid trial. -Breathing treatments Essential hypertension -Stable. Continue CCB/GUY inhibitors Asthma with mild exacerbation -Today patient with worsening wheezing. We will change to IV steroids. -Continue breathing treatments/ICH/Singulair Dyslipidemia -On statin DVT prophylaxis: Heparin. Disposition: Patient still requires supplemental oxygen. He is also an asthma exacerbation. Continue current management. Await for further clinical improvement. Patient is seen in collaboration with Dr. Natarajan. Result Diagram: 09/26/18 0600 09/26/18 0600 Results 24hrs Laboratory Tests Test 09/26/18 06:00 White Blood Count 17.0 H Red Blood Count 4.47 L Hemoglobin 13.5 L Hematocrit 39.9 L Mean Corpuscular Volume 89.3 Mean Corpuscular Hemoglobin 30.2 Mean Corpuscular Hemoglobin Concent 33.8 Red Cell Distribution Width 13.2 Platelet Count 189 Mean Platelet Volume 11.9 H Immature Granulocytes % 0.900 H Neutrophils % 89.9 H Segmented Neutrophils % (Manual) 76 Band Neutrophils % (Manual) 15 H Lymphocytes % 6.2 L Lymphocytes % (Manual) 5 L Monocytes % 2.9 Monocytes % (Manual) 4 Eosinophils % 0.0 Basophils % 0.1 Nucleated Red Blood Cells % 0.0 Immature Granulocytes # 0.160 H Neutrophils # 15.3 H Neutrophils # (Manual) 13.3 H Band Neutrophils # 2.5 H Lymphocytes (Manual) 0.8 Lymphocytes # 1.1 Monocytes # 0.5 Monocytes # (Manual) 0.6 Eosinophils # 0.0 Basophils # 0.0 Nucleated Red Blood Cells # 0.0 Platelet Estimate NORMAL Giant Platelets 4 H Hypochromasia 1+ Anisocytosis 2+ Microcytosis 1+ Macrocytosis 1+ Sodium Level 138 Potassium Level 3.7 Chloride Level 106 Carbon Dioxide Level 25 Anion Gap 7 Blood Urea Nitrogen 19 Creatinine 0.82 Est Glomerular Filtrat Rate mL/min Glucose Level 158 Calcium Level 8.9 Phosphorus Level 2.6 Magnesium Level 2.2 Exam/Review of Systems Exam Vitals Vital Signs Date Temp Pulse Resp B/P (MAP) Pulse Ox O2 O2 Flow FiO2 Time Delivery Rate 09/26/18 98.8 83 16 151/74 95 11:54 (99) 09/26/18 Nasal 2.0 07:26 Cannula 09/24/18 21 14:17 Intake and Output 09/25/18 09/25/18 09/26/18 1515:00 23:00 07:00 IntakeIntake Total 820 ml 450 ml BalanceBalance 820 ml 450 ml Results Results 24hrs Laboratory Tests Test 09/26/18 06:00 White Blood Count 17.0 H Red Blood Count 4.47 L Hemoglobin 13.5 L Hematocrit 39.9 L Mean Corpuscular Volume 89.3 Mean Corpuscular Hemoglobin 30.2 Mean Corpuscular Hemoglobin Concent 33.8 Red Cell Distribution Width 13.2 Platelet Count 189 Mean Platelet Volume 11.9 H Immature Granulocytes % 0.900 H Neutrophils % 89.9 H Segmented Neutrophils % (Manual) 76 Band Neutrophils % (Manual) 15 H Lymphocytes % 6.2 L Lymphocytes % (Manual) 5 L Monocytes % 2.9 Monocytes % (Manual) 4 Eosinophils % 0.0 Basophils % 0.1 Nucleated Red Blood Cells % 0.0 Immature Granulocytes # 0.160 H Neutrophils # 15.3 H Neutrophils # (Manual) 13.3 H Band Neutrophils # 2.5 H Lymphocytes (Manual) 0.8 Lymphocytes # 1.1 Monocytes # 0.5 Monocytes # (Manual) 0.6 Eosinophils # 0.0 Basophils # 0.0 Nucleated Red Blood Cells # 0.0 Platelet Estimate NORMAL Giant Platelets 4 H Hypochromasia 1+ Anisocytosis 2+ Microcytosis 1+ Macrocytosis 1+ Sodium Level 138 Potassium Level 3.7 Chloride Level 106 Carbon Dioxide Level 25 Anion Gap 7 Blood Urea Nitrogen 19 Creatinine 0.82 Est Glomerular Filtrat Rate mL/min Glucose Level 158 Calcium Level 8.9 Phosphorus Level 2.6 Magnesium Level 2.2 Medications Medication Current Medications Levalbuterol (Xopenex Neb) 0.63 mg Q4H RESP THERAPY PRN HHN desaturat Last administered on 09/25/18 05:20; Admin Dose 0.63 MG; Start 09/25/18 at 00:00 Ipratropium [place] (Atrovent 0.02% (Neb)) 0.5 mg Q4H RESP THERAPY PRN HHN SHORTNESS OF BREATH Last administered on 09/25/18 05:20; Admin Dose 0.5 MG; Start 09/25/18 at 00:00 Acetaminophen (Tylenol Tab) 650 mg Q6H PRN PO MILD PAIN(1-3)OR ELEVATED TEMP Last administered on 09/25/18at 20:48; Admin Dose 650 MG; Start 09/25/18 at 05:17 IV Flush (NS 3 ml) 3 ml PER PROTOCOL IV ; Start 09/25/18 at 08:30 Ondansetron HCl (Zofran Inj) 4 mg Q6H PRN IV NAUSEA/VOMITING; Start 09/25/18 at 08:30 Heparin Sodium (Porcine) (Heparin (5000 Units/1ml)) 5,000 unit Q12 SC Last administered on 09/26/18 08:05; Admin Dose 5,000 UNIT; Start 09/25/18 at 09:00 Albuterol/ Ipratropium (Duoneb) 3 ml Q2H RESP THERAPY PRN HHN SHORTNESS OF BREATH Last administered on 5/27/19at 10:24; Admin Dose 3 ML; Start 09/25/18 at 09:00 Amlodipine Besylate (Norvasc) 10 mg DAILY PO Last administered on 09/26/18 07:58; Admin Dose 10 MG; Start 09/25/18 at 09:00 Atorvastatin Calcium (Lipitor) 20 mg DAILY PO Last administered on 09/26/18 07:59; Admin Dose 20 MG; Start 09/25/18 at 09:00 Benazepril HCl (Lotensin) 40 mg DAILY PO Last administered on 09/26/18 07:59; Admin Dose 40 MG; Start 09/25/18 at 09:00 Fluticasone Propionate (Flonase 0.05% Nasal) 1 spray BID NASAL Last administered on 09/26/18 07:58; Admin Dose 1 SPRAY; Start 09/25/18 at 09:00 Montelukast Sodium (Singulair) 10 mg QHS PO Last administered on 09/25/18 20:47; Admin Dose 10 MG; Start 09/25/18 at 21:00 Pantoprazole (Protonix Tab) 40 mg DAILY@06 PO Last administered on 09/26/18 06:27; Admin Dose 40 MG; Start 09/26/18 at 06:00 Levofloxacin/ Dextrose 100 ml @ 100 mls/hr Q24H IVPB Last administered on 09/25/18 15:07; Admin Dose 100 MLS/HR; Start 09/25/18 at 16:00 Guaifenesin/ Dextromethorphan (Mucinex Dm) 1 tab BID PO Last administered on 09/26/18 07:58; Admin Dose 1 TAB; Start 09/25/18 at 21:00 Prednisone (Prednisone) 40 mg DAILY PO Last administered on 09/26/18 07:59; Admin Dose 40 MG; Start 09/25/18 at 15:00 ROSALIND CORNEJO NP September 26, 2018 12:22
[2018-09-26] MEDS: METHYLPREDNISOLONE 40 MG INJ IV SCH ×2 (15:06→21:35)
[2018-09-26] MEDS: LEVOFLOXACIN 500MG/D5W (PMX) 100 ML IVPB SCH (15:06)
[2018-09-26] MEDS: MONTELUKAST 10 MG TAB PO SCH (21:18)
[2018-09-27] VITALS (10 sets, daily range): BP systolic 141–173; BP diastolic 65–84; PULSE 70–89; RESP 18–19
[2018-09-27] MEDS: ALBUTEROL/IPRATROPIUM (NEB) 3 ML AMP HHN PRN (04:32)
[2018-09-27] MEDS: PANTOPRAZOLE (EC) 40 MG TAB PO SCH (06:39)
[2018-09-27] MEDS: METHYLPREDNISOLONE 40 MG INJ IV SCH ×3 (06:39→21:55)
[2018-09-27] MEDS: ATORVASTATIN 20 MG TAB PO SCH (08:43)
[2018-09-27] MEDS: AMLODIPINE 10 MG TAB PO SCH (08:43)
[2018-09-27] MEDS: GUAIFENESIN/DM (SR) TAB PO SCH ×2 (08:43→21:54)
[2018-09-27] MEDS: BENAZEPRIL 40 MG TAB PO SCH (08:43)
[2018-09-27] MEDS: FLUTICASONE 0.05% 16 GM NAS SPRAY NASAL SCH ×2 (08:44→21:00)
[2018-09-27] MEDS: HEPARIN 5,000 UNIT/1 ML VIAL SC SCH ×2 (08:47→22:06)
--- NOTE | 2018-09-27 11:37 | PN ---
Date/Time of Note Date/Time of Note DATE: 09/27/18 TIME: 11:34 Assessment/Plan VTE Prophylaxis Risk score (from [facility])>0 risk: 3 SCD applied (from [facility] [place] No SCD contraindicated: other Pharmacological prophylaxis: heparin Lines/Catheters IV C[facility] Type (from [facility] Saline Lock Assessment/Plan Hospital Course SUBJECTIVE: Wheezing improved. However, patient still with mild respiratory d istress requiring supplemental oxygen via nasal cannula. OBJECTIVE: Vital signs-see below PHYSICAL EXAM: Constitutional: Adequately built,not in acute distress. HEENT: Head atraumatic and normocephalic. Eyes: Extraocular muscles intact. Anicteric sclerae. Pupils equal bilaterally, reactive to light. NECK: Supple without lymph node. CHEST:wheezing bilaterally, expiratory. Diminished bibasilar. No wheezing. No rhonchi. HEART: S1, S2. Regular rate and rhythm. ABDOMEN: Soft/non tender with no rebound tenderness. Bowel sounds were present. EXTREMITIES: No cyanosis, clubbing or edema. NEUROLOGIC: Alert and oriented x3. No focal deficit. No sensory deficit. PSYCHOSOCIAL: No signs of depression. INTEGUMENTARY: No open wounds. ASSESSMENT AND PLAN:78 yo M w/htn,asthma,dlp, here with S OB/productive cough/chest congestion x1 week, found to have pneumonia/sepsis Sepsis, likely secondary to pneumonia -Clinically improving. Note leukocytosis could be also part of patient receiving steroids. -Continue ABX, breathing treatments, cough medications Hypoxemic respiratory failure likely secondary to pneumonia/asthma exacerbation -pt still requires supplemental oxygen=>Chest CT -Get room air oxygen saturation=.CM to arrange home O2 if indicated -Continue IV steroids and will de-escalate in a.m. if clinically improves further. -Continue breathing treatments -Pending pulmonary evaluation Essential hypertension -Stable. Continue CCB/GUY inhibitors Asthma exacerbation -Continue breathing treatments/ICH/Singulair/steroids Dyslipidemia -On statin DVT prophylaxis: Heparin. Disposition: Patient still requires supplemental oxygen. Continue current management. f/u Chest CT. Await for further clinical improvement. Downgrade to medical surgical floor Patient is seen in collaboration with Dr. Natarajan. Result Diagram: 09/26/18 0600 09/26/18 0600 Exam/Review of Systems Exam Vitals Vital Signs Date Temp Pulse Resp B/P (MAP) Pulse Ox O2 O2 Flow FiO2 Time Delivery Rate 5/29/19 Nasal 2.0 08:20 Cannula 09/27/18 89 08:00 09/27/18 97.9 18 161/80 95 07:18 (107) 09/24/18 21 14:17 Intake and Output 09/26/18 09/26/18 09/27/18 1515:00 23:00 07:00 IntakeIntake Total 850 ml 400 ml BalanceBalance 850 ml 400 ml Medications Medication Current Medications Levalbuterol (Xopenex Neb) 0.63 mg Q4H RESP THERAPY PRN HHN desaturat Last administered on 09/25/18 05:20; Admin Dose 0.63 MG; Start 09/25/18 at 00:00 Ipratropium [place] (Atrovent 0.02% (Neb)) 0.5 mg Q4H RESP THERAPY PRN HHN SHORTNESS OF BREATH Last administered on 09/25/18 05:20; Admin Dose 0.5 MG; Start 09/25/18 at 00:00 Acetaminophen (Tylenol Tab) 650 mg Q6H PRN PO MILD PAIN(1-3)OR ELEVATED TEMP Last administered on 09/25/18 20:48; Admin Dose 650 MG; Start 09/25/18 at 05:17 IV Flush (NS 3 ml) 3 ml PER PROTOCOL IV ; Start 09/25/18 at 08:30 Ondansetron HCl (Zofran Inj) 4 mg Q6H PRN IV NAUSEA/VOMITING; Start 09/25/18 at 08:30 Heparin Sodium (Porcine) (Heparin (5000 Units/1ml)) 5,000 unit Q12 SC Last administered on 09/27/18 08:47; Admin Dose 5,000 UNIT; Start 09/25/18 at 09:00 Albuterol/ Ipratropium (Duoneb) 3 ml Q2H RESP THERAPY PRN HHN SHORTNESS OF BREATH Last administered on 09/27/18 04:32; Admin Dose 3 ML; Start 09/25/18 at 09:00 Amlodipine Besylate (Norvasc) 10 mg DAILY PO Last administered on 09/27/18 08:43; Admin Dose 10 MG; Start 09/25/18 at 09:00 Atorvastatin Calcium (Lipitor) 20 mg DAILY PO Last administered on 09/27/18 08:43; Admin Dose 20 MG; Start 09/25/18 at 09:00 Benazepril HCl (Lotensin) 40 mg DAILY PO Last administered on 09/27/18 08:43; Admin Dose 40 MG; Start 09/25/18 at 09:00 Fluticasone Propionate (Flonase 0.05% Nasal) 1 spray BID NASAL Last administered on 09/27/18 08:44; Admin Dose 1 SPRAY; Start 09/25/18 at 09:00 Montelukast Sodium (Singulair) 10 mg QHS PO Last administered on 09/26/18 21:18; Admin Dose 10 MG; Start 09/25/18 at 21:00 Pantoprazole (Protonix Tab) 40 mg DAILY@06 PO Last administered on 09/27/18 06:39; Admin Dose 40 MG; Start 09/26/18 at 06:00 Levofloxacin/ Dextrose 100 ml @ 100 mls/hr Q24H IVPB Last administered on 09/26/18 15:06; Admin Dose 100 MLS/HR; Start 09/25/18 at 16:00 Guaifenesin/ Dextromethorphan (Mucinex Dm) 1 tab BID PO Last administered on 08:43; Admin Dose 1 TAB; Start 09/25/18 at 21:00 Methylprednisolone Sodium Succinate (Solu-Medrol) 40 mg Q8 IV Last administered on 09/27/18 06:39; Admin Dose 40 MG; Start 09/26/18 at 14:00 ROSALIND CORNEJO NP September 27, 2018 11:37
--- NOTE | 2018-09-27 14:26 | CONS ---
DATE OF ADMISSION: 09/24/2018 DATE OF CONSULTATION: 09/27/2018 TYPE OF CONSULTATION: Pulmonary. REASON FOR CONSULTATION: Respiratory distress. Thank you, Dr. Marin, for this consultation. HISTORY OF PRESENT ILLNESS: This is a 78-year-old gentleman who presents with several-day history of increasing shortness of breath, cough, congestion, wheezing. No fever, no chills, no orthopnea, no PND. Had significant leukocytosis, white count of 21.7. Chest x-ray had demonstrated bilateral lowe r airspace disease. The patient is a poor historian, unable to give me further significant details. Apparently, he has a history of asthma. SOCIAL HISTORY: Currently, nonsmoker. No history of drug abuse. PAST MEDICAL HISTORY: As above. PHYSICAL EXAMINATION: GENERAL: Well-nourished, well-developed gentleman, comfortable at rest, in no acute distress. VITAL SIGNS: Currently afebrile, pulse is 80, blood pressure 190/70, O2 saturation 96% on 2 liters. NECK: Supple. No JVD or lymphadenopathy. CARDIAC: S1, S2. No added sounds or murmurs. CHEST: Diminished air entry bilaterally. ABDOMEN: Soft, nontender. No guarding or rebound. EXTREMITIES: No cyanosis, clubbing, edema. NEUROLOGIC: Grossly intact. No focal deficits. LABORATORY DATA: White count currently 17, hemoglobin 13.5, platelets of 189. Chemistry within norm al limits. BNP is elevated at 1190. ABG: pH 7.5, pCO2 of 28, pO2 of 49. IMPRESSION AND PLAN: 1. Likely community-acquired pneumonia. 2. Acute hypoxemic respiratory failure. 3. Underlying possible history of asthma. The patient will require: 1. Antibiotics, currently on Levaquin. 2. Steroid taper. 3. Bronchodilators. 4. Outpatient pulmonary function testing. 5. DVT and GI prophylaxis. Dictated By: AKBAR GILLIAM MD SV/NTS Conf#: [id number] DID#: [id number] CC: JT MARIN MD;*EndCC*
--- NOTE | 2018-09-27 14:50 | QN ---
Documentation Comment Chest CT shows persistent infiltrates. At this time, will also add Zithromax for atypical coverage. Patient also had bigeminy's per nurse, asymptomatic. Will request cardiology consultation for abnormal EKG. Case discussed with Dr. Natarajan. ROSALIND CORNEJO NP September 27, 2018 14:50
[2018-09-27] MEDS: AZITHROMYCIN 500 MG TAB PO SCH (15:51)
[2018-09-27] MEDS: LEVOFLOXACIN 500MG/D5W (PMX) 100 ML IVPB SCH (15:51)
[2018-09-27] MEDS: MONTELUKAST 10 MG TAB PO SCH (21:54)
[2018-09-27] MEDS: METOPROLOL 50 MG TAB PO SCH (21:54)
--- NOTE | 2018-09-27 22:06 | RADRPT ---
Echocardiogram Report Patient Name: XENIA DODGEPatient ID: [id number] : 1940 (78y 2m)Study Date: 09/26/2018 2:41:26 PM Gender: MAccession #: [id number] Tech: Brodie Vázquez [facility] Location: [facility] Ref.Physician: ROSALIND CORNEJO Height(Cm): BSA: Weight(Kg): Quality: Technically Difficult StudyOrder Physician: ROSLAIND CORNEJO Account #: Procedures: Echocardiographic Report: Transthoracic echocardiogram with complete 2D, M-Mode, and doppler examination. Indications: Bradycardia. Measurements: 2D/M Mode Doppler Measurement Value Normal Range Measurement Value Normal Range LVIDd 2D 4.8 [ 4.2 - 5.8 ] cm AV Peak [place] 1.8 [ 100.0 - 170.0 ] cm/sec LVIDs 2D 3.2 [ 2.5 - 4.0 ] cm AV Peak PG 13.0 [ 2.0 - 9.0 ] mmHg LVPWd 2D 1.1 [ 0.6 - 1.0 ] cm LVOT Peak [place] 1.1 [ 70.0 - 110.0 ] cm/sec IVSd 2D 1.1 [ 0.6 - 1.0 ] cm LVOT Peak PG 5.0 [ 2.0 - 6.0 ] mmHg AoR Diam 2D 2.4 [ 2.6 - 3.4 ] cm MV E Peak [place] 1.0 [ 60.0 - 130.0 ] cm/sec EDV 2D 105.0 [ 62.0 - 150.0 ] ml MV A Peak [place] 0.9 [ 100.0 - 120.0 ] cm/sec ESV 2D 41.0 [ 21.0 - 61.0 ] ml MV E/A 1.1 [ 0.8 - 1.5 ] ratio EF 2D 61.0 [ 52.0 - 72.0 ] percent MV Decel Time 218 [ 104 - 258 ] msec LA Dimen 2D 3.7 [ 3.0 - 4.0 ] cm Lat E` Ambrose 0.1 [ 10.0 - 15.0 ] cm/sec Lateral E/E` 7.1 [ 1.0 - 2.0 ] ratio MV E/A 1.1 [ 0.8 - 1.5 ] ratio RA Pressure 3.0 mmHg Findings: Left Ventricle: Normal left ventricular systolic function. Normal left ventricular cavity size. Sigmoid septum. Ejection fraction is visually estimated at 60 %. Tissue Doppler/Mitral Doppler indices are consistent with pseudonormalization with mildly elevated left atrial pressure (Stage II diastolic dysfunction). Right Ventricle: Normal right ventricular size. Normal right ventricular systolic function. Left Atrium: The left atrium is normal in size. Right Atrium: The right atrium is normal in size. Mitral Valve: Mild mitral leaflet calcification. Mild mitral annular calcification. Trace mitral regurgitation. Aortic Valve: No hemodynamically significant aortic stenosis by doppler. Aortic cusps appear mildly calcified. Tricuspid Valve: Normal appearance of the tricuspid valve. Unable to obtain RVSP due to minimal presence of tricuspid regurgitation. Pericardium: Normal pericardium with no significant pericardial effusion. Aorta: Normal aortic root. IVC: Normal size and normal respiratory collapse consistent with normal right atrial pressure. Conclusions: Normal left ventricular systolic function. Normal left ventricular cavity size. Sigmoid septum. Ejection fraction is visually estimated at 60 %. Tissue Doppler/Mitral Doppler indices are consistent with pseudonormalization with mildly elevated left atrial pressure (Stage II diastolic dysfunction). Mild mitral leaflet calcification. Mild mitral annular calcification. Trace mitral regurgitation. Normal appearance of the tricuspid valve. Unable to obtain RVSP due to minimal presence of tricuspid regurgitation. Electronically Signed By: Clayton Ritter 2018-09-27 22:05:05 PDT
--- NOTE | 2018-09-27 23:05 | CONS ---
DATE OF ADMISSION: 09/24/2018 DATE OF CONSULTATION: 09/27/2018 REASON FOR CONSULTATION: Hypertension. REQUESTING PHYSICIAN: Meaghan Cornejo NP, from the hospitalist service. HISTORY OF PRESENT ILLNESS: Mr. Diaz is a 78-year-old male with a history of hypertension, dyslip idemia, asthma who presented with complaints of shortness of breath, congestion, fever episodes of di zziness, nausea, vomiting and complaints of recurrent uncontrolled blood pressures. Initially in the emergency department, patient had a temperature of 102.6, blood pressure of 165/74, pulse 69, respir ation 18, satting 96%. The patient's labs revealed white count 21.7, hemoglobin 14 and platelet coun t of 196, a sodium 138, potassium 3.5, creatinine 1.0, BUN of 22. A pH of 7.508, a PaO2 of 49, a pCO 2 of 27. BNP of 1190. UA positive. The patient underwent a chest x-ray and revealed bilateral lowe r lobe airspace disease representing atelectasis or pneumonia and a subsequent chest CT that revealed mild bibasilar infiltrates, predominantly in the bronchovascular distribution as well as a small jessica und glass opacities consistent with infectious inflammatory process, small left-sided pleural effusio n, prominent subcentimeter mediastinal lymph nodes. The patient's electrocardiogram is not in the art for my review at this time. The patient subsequently admitted to the floor, was started on stero ids, broad spectrum antibiotics, treated with benazepril and Norvasc for blood pressure and continues to have elevated systolic blood pressures, at this time improved, but still in the 150s to 160s. PAST MEDICAL HISTORY: As above in HPI. MEDICATIONS CURRENTLY IN HOSPITAL: 1. Azithromycin. 2. Solu-Medrol 40 mg IV. 3. Protonix. 4. Singulair. 5. Mucinex. 6. Levofloxacin. 7. Heparin. 8. DuoNeb. 9. Norvasc. 10. Lipitor. 11. Benazepril. 12. Zofran p.r.n. 13. Tylenol p.r.n. 14. Xopenex. ALLERGIES: PENICILLIN. SOCIAL HISTORY: No current tobacco, EtOH or illicit drug use. FAMILY HISTORY: No history of sudden cardiac or early CAD. REVIEW OF SYSTEMS: As above in HPI. CONSTITUTIONAL: No fevers or chills. PULMONARY: No current shortness of breath. CARDIOVASCULAR: No current chest pain. GASTROINTESTINAL: No vomiting. GENITOURINARY: No hematuria. MUSCULOSKELETAL: Degenerative joint disease. PSYCHIATRIC: The patient has depression. NEUROLOGIC: Documented history of cerebrovascular accident. Dizziness. ENDOCRINE: No documented diabetes mellitus. PHYSICAL EXAMINATION: VITAL SIGNS: Temperature of 97.8, blood pressure 154/69, pulse 72, respiratory rate 18, sat 95%. GENERAL: The patient is alert, awake, no acute distress. NECK: JVP approximately 8 to 9 cm of water. CHEST: Fair air movement throughout. HEART: Regular rate and rhythm. Normal S1, S2, I/ systolic murmur, nondisplaced PMI. ABDOMEN: Positive bowel sounds, soft. EXTREMITIES: No significant pitting edema, 1+ pulses bilaterally posterior tibial. LABORATORIES: Most recently from today, sodium 138, potassium 3.7, creatinine 0.8, BUN 19. White bl ood cell count 17, hemoglobin 13.5, platelet count of 189. IMAGING STUDIES: As above in HPI. No further imaging studies for my review at this time. ECG: No electrocardiograms for my review at this time. Telemetry does have episodes of intermittent bigeminy. IMPRESSION: 1. Hypertension, uncontrolled. 2. Cardiac arrhythmia with bigeminy. Rule out acute coronary syndrome. 3. Pneumonia. 4. Chronic obstructive pulmonary disease/asthma. 5. Dyslipidemia. 6. Elevated BNP/congestive heart failure. RECOMMENDATIONS: 1. At this time, we would maintain patient on telemetry monitoring to follow rhythm and rate closely given PVCs. 2. Would continue the patient's current Norvasc and benazepril for control of blood pressure and giv en episodes of bigeminy, we will add a beta cong in attempt to improve systolic blood pressure con trol and additionally we will complete a rule out for myocardial infarction to ensure the patient's c ardiac rhythm is not due to any ischemic episode such an acute coronary syndrome. 3. We will check the patient's ejection fraction with a 2D echo given elevated BNP and consider gent le Lasix diuresis. 4. Continue the patient's steroids, bronchodilators and antibiotics following respiratory status jake sely. Thank you for allowing me to take part in the care of this patient. I will continue to follow along very closely with you with further recommendations to be made as the patient progresses through [facility] course. ADDENDUM: At the completion of his dictation I did locate the patient's EKG. It was in the distal portion of t he chart and was notable for inferior and lateral T-wave inversions ____ anterior and thus given thes e findings, we will add once again a beta cong to improve the patient's overall blood pressure con trol and suppress further bouts of cardiac arrhythmia and we will complete the patient's rule out inf arction, assess patient's ejection fraction. Dictated By: GUICHO CARMICHAEL/NTS Conf#: [id number] DID#: [id number] CC: JT PAGE MD; MEAGHAN CORNEJO NP;*End*
[2018-09-28] VITALS (11 sets, daily range): BP systolic 138–168; BP diastolic 63–83; PULSE 54–69; RESP 18–20
[2018-09-28] MEDS: METHYLPREDNISOLONE 40 MG INJ IV SCH ×2 (05:59→17:18)
[2018-09-28] MEDS: PANTOPRAZOLE (EC) 40 MG TAB PO SCH (05:59)
[2018-09-28] MEDS: GUAIFENESIN/DM (SR) TAB PO SCH ×2 (09:22→21:26)
[2018-09-28] MEDS: ATORVASTATIN 20 MG TAB PO SCH (09:22)
[2018-09-28] MEDS: METOPROLOL 50 MG TAB PO SCH ×2 (09:22→21:26)
[2018-09-28] MEDS: BENAZEPRIL 40 MG TAB PO SCH (09:23)
[2018-09-28] MEDS: FLUTICASONE 0.05% 16 GM NAS SPRAY NASAL SCH ×2 (09:23→21:25)
[2018-09-28] MEDS: FUROSEMIDE 20 MG INJ IV SCH (09:23)
[2018-09-28] MEDS: AZITHROMYCIN 500 MG TAB PO SCH (09:23)
[2018-09-28] MEDS: AMLODIPINE 10 MG TAB PO SCH (09:23)
--- NOTE | 2018-09-28 09:35 | RADRPT ---
Vent Rate: 59 bpm RR Interval: 1024 msec [place] Interval: 175 msec QRS Duration: 92 msec QT Interval: 447 msec QTC Interval: 442 msec P-R-T [place]: 60 - 28 - 238 degrees Sinus rhythm...normal P axis, V-rate 50- 99 Multiform ventricular premature complexes.. Abnormal T, consider ischemia, diffuse leads...T <-0.20mV, ant/lat/inf Electronically Signed By: Rene Mitchell
[2018-09-28] MEDS: HEPARIN 5,000 UNIT/1 ML VIAL SC SCH ×2 (10:05→21:31)
--- NOTE | 2018-09-28 11:40 | PN ---
Date/Time of Note Date/Time of Note DATE: 09/28/18 TIME: 11:31 Assessment/Plan VTE Prophylaxis Risk score (from Ns)>0 risk: 3 [place]CD applied (from [facility] [place] No SCD contraindicated: other Pharmacological prophylaxis: heparin Lines/Catheters IV C[facility]ter Type (from [facility] Saline Lock Assessment/Plan Hospital Course SUBJECTIVE: Overall, patient with improved respiratory status. He still has w heezing on right upper lobes. Pt did have bigeminy episodes yesterday with no palpitation, chest pain or reported. OBJECTIVE: Vital signs-see below PHYSICAL EXAM: Constitutional: Adequately built,not in acute distress. HEENT: Head atraumatic and normocephalic. Eyes: Extraocular muscles intact. A nicteric sclerae. Pupils equal bilaterally, reactive to light. NECK: Supple without lymph node. CHEST:wheezing RUL, expiratory. Diminished bibasilar. No wheezing. No rhonchi. HEART: S1, S2. Regular rate and rhythm. ABDOMEN: Soft/non tender with no rebound tenderness. Bowel sounds were present. EXTREMITIES: No cyanosis, clubbing or edema. NEUROLOGIC: Alert and oriented x3. No focal deficit. No sensory deficit. PSYCHOSOCIAL: No signs of depression. INTEGUMENTARY: No open wounds. ASSESSMENT AND PLAN:78 yo M w/htn,asthma,dlp, here with S OB/productive cough/chest congestion x1 week, found to have pneumonia/sepsis Sepsis, likely secondary to pneumonia -Clinically improving. Note leukocytosis could be also part of patient receiving steroids. -Continue ABX, breathing treatments, cough medications Hypoxemic respiratory failure likely secondary to pneumonia/asthma exacerbation -Improving. -Continue breathing treatments Community acquired pneumonia. -Patient is improving with addition of Zithromax. Abnormal EKG/bigeminy's -Appreciate cardiology follow-up. Currently stable. -Continue blood pressure management. Beta-blockers has been added. Essential hypertension -Stable. Continue BB/CCB/GUY inhibitors Asthma exacerbation -Patient still with wheezing right side, improved from prior. De-escalate IV steroids down to twice daily. -Continue breathing treatments/ICH/Singulair/steroids Dyslipidemia -On statin DVT prophylaxis: Heparin. Disposition: Continue current management. Patient still with occasional PVCs and cardiology recommended telemetry monitoring. Likely can be discharged in morning with outpatient follow-up. Patient is seen in collaboration with Dr. Natarajan. Result Diagram: 09/28/18 0654 09/28/18 0654 Results 24hrs Laboratory Tests Test 09/28/18 00:26 09/28/18 06:54 Creatine Kinase 124 95 Creatine Kinase Index 2.6 3.3 Creatinine Kinase MB (Mass) 3.20 H 3.12 H Troponin I < 0.012 < 0.012 White Blood Count 18.9 H Red Blood Count 4.94 Hemoglobin 14.7 Hematocrit 43.8 Mean Corpuscular Volume 88.7 Mean Corpuscular Hemoglobin 29.8 Mean Corpuscular Hemoglobin Concent 33.6 Red Cell Distribution Width 13.2 Platelet Count 292 # Mean Platelet Volume 12.3 H Immature Granulocytes % 3.000 H Neutrophils % 81.6 H Lymphocytes % 11.4 L Monocytes % 3.7 Eosinophils % 0.0 Basophils % 0.3 Nucleated Red Blood Cells % 0.0 Immature Granulocytes # 0.570 H Neutrophils # 15.5 H Lymphocytes # 2.2 Monocytes # 0.7 Eosinophils # 0.0 Basophils # 0.1 Nucleated Red Blood Cells # 0.0 Sodium Level 141 Potassium Level 4.2 Chloride Level 106 Carbon Dioxide Level 24 Anion Gap 11 Blood Urea Nitrogen 26 H Creatinine 0.76 Est Glomerular Filtrat Rate mL/min Glucose Level 127 Calcium Level 9.0 Triglycerides Level 134 Cholesterol Level 158 LDL Cholesterol, Calculated 93 HDL Cholesterol 38 Cholesterol/HDL Ratio 4.1 Exam/Review of Systems Exam Vitals Vital Signs Date Temp Pulse Resp B/P (MAP) Pulse Ox O2 O2 Flow FiO2 Time Delivery Rate 09/28/18 Nasal 2.0 08:20 Cannula 09/28/18 57 08:00 09/28/18 97.4 20 154/82 97 07:31 (106) 09/24/18 21 14:17 Intake and Output 09/27/18 09/27/18 09/28/18 1414:59 22:59 06:59 IntakeIntake Total 850 ml 520 ml OutputOutput Total 800 ml BalanceBalance 50 ml 520 ml Results Results 24hrs Laboratory Tests Test 09/28/18 00:26 09/28/18 06:54 Creatine Kinase 124 95 Creatine Kinase Index 2.6 3.3 Creatinine Kinase MB (Mass) 3.20 H 3.12 H Troponin I < 0.012 < 0.012 White Blood Count 18.9 H Red Blood Count 4.94 Hemoglobin 14.7 Hematocrit 43.8 Mean Corpuscular Volume 88.7 Mean Corpuscular Hemoglobin 29.8 Mean Corpuscular Hemoglobin Concent 33.6 Red Cell Distribution Width 13.2 Platelet Count 292 # Mean Platelet Volume 12.3 H Immature Granulocytes % 3.000 H Neutrophils % 81.6 H Lymphocytes % 11.4 L Monocytes % 3.7 Eosinophils % 0.0 Basophils % 0.3 Nucleated Red Blood Cells % 0.0 Immature Granulocytes # 0.570 H Neutrophils # 15.5 H Lymphocytes # 2.2 Monocytes # 0.7 Eosinophils # 0.0 Basophils # 0.1 Nucleated Red Blood Cells # 0.0 Sodium Level 141 Potassium Level 4.2 Chloride Level 106 Carbon Dioxide Level 24 Anion Gap 11 Blood Urea Nitrogen 26 H Creatinine 0.76 Est Glomerular Filtrat Rate mL/min Glucose Level 127 Calcium Level 9.0 Triglycerides Level 134 Cholesterol Level 158 LDL Cholesterol, Calculated 93 HDL Cholesterol 38 Cholesterol/HDL Ratio 4.1 Medications Medication Current Medications Levalbuterol (Xopenex Neb) 0.63 mg Q4H RESP THERAPY PRN HHN desaturat Last administered on 09/25/18at 05:20; Admin Dose 0.63 MG; Start 09/25/18 at 00:00 Ipratropium [place] (Atrovent 0.02% (Neb)) 0.5 mg Q4H RESP THERAPY PRN HHN SHORTNESS OF BREATH Last administered on 09/25/18at 05:20; Admin Dose 0.5 MG; Start 09/25/18 at 00:00 Acetaminophen (Tylenol Tab) 650 mg Q6H PRN PO MILD PAIN(1-3)OR ELEVATED TEMP Last administered on 09/25/18at 20:48; Admin Dose 650 MG; Start 09/25/18 at 05:17 IV Flush (NS 3 ml) 3 ml PER PROTOCOL IV ; Start 09/25/18 at 08:30 Ondansetron HCl (Zofran Inj) 4 mg Q6H PRN IV NAUSEA/VOMITING; Start 09/25/18 at 08:30 Heparin Sodium (Porcine) (Heparin (5000 Units/1ml)) 5,000 unit Q12 SC Last administered on 09/28/18at 10:05; Admin Dose 5,000 UNIT; Start 09/25/18 at 09:00 Albuterol/ Ipratropium (Duoneb) 3 ml Q2H RESP THERAPY PRN HHN SHORTNESS OF BREATH Last administered on 09/27/18 04:32; Admin Dose 3 ML; Start 09/25/18 at 09:00 Amlodipine Besylate (Norvasc) 10 mg DAILY PO Last administered on 09/28/18 09:23; Admin Dose 10 MG; Start 09/25/18 at 09:00 Atorvastatin Calcium (Lipitor) 20 mg DAILY PO Last administered on 09/28/18 09:22; Admin Dose 20 MG; Start 09/25/18 at 09:00 Benazepril HCl (Lotensin) 40 mg DAILY PO Last administered on 09/28/18 09:23; Admin Dose 40 MG; Start 09/25/18 at 09:00 Fluticasone Propionate (Flonase 0.05% Nasal) 1 spray BID NASAL Last administered on 09/28/18 09:23; Admin Dose 1 SPRAY; Start 09/25/18 at 09:00 Montelukast Sodium (Singulair) 10 mg QHS PO Last administered on 09/27/18 21:54; Admin Dose 10 MG; Start 09/25/18 at 21:00 Pantoprazole (Protonix Tab) 40 mg DAILY@06 PO Last administered on 09/28/18 05:59; Admin Dose 40 MG; Start 09/26/18 at 06:00 Levofloxacin/ Dextrose 100 ml @ 100 mls/hr Q24H IVPB Last administered on 09/27/18 15:51; Admin Dose 100 MLS/HR; Start 09/25/18 at 16:00 Guaifenesin/ Dextromethorphan (Mucinex Dm) 1 tab BID PO Last administered on 09/28/18 09:22; Admin Dose 1 TAB; Start 09/25/18 at 21:00 Azithromycin (Zithromax) 500 mg DAILY PO Last administered on 09/28/18 09:23; Admin Dose 500 MG; Start 09/27/18 at 15:00; Stop 10/02/18 at 14:59 Metoprolol Tartrate (Lopressor) 50 mg BID PO Last administered on 09/28/18 0 9:22; Admin Dose 50 MG; Start 09/27/18 at 21:00 Furosemide (Lasix) 20 mg DAILY IV Last administered on 5/30/19at 09:23; Admin Dose 20 MG; Start 09/28/18 at 09:00 Methylprednisolone Sodium Succinate (Solu-Medrol) 40 mg Q12H IV ; Start 09/28/18 at 18:00; Status ROSALIND SANTANA NP September 28, 2018 11:40
--- NOTE | 2018-09-28 11:41 | CONS ---
Consult Date/Type/Reason Admit Date/Time September 24, 2018 at 20:57 Initial Consult Date Type of Consult Pulmonary Date/Time of Note DATE: 09/28/18 TIME: 11:40 Subjective Patient comfortable this morning. No respiratory distress. Objective Vital Signs Date Temp Pulse Resp B/P (MAP) Pulse Ox O2 O2 Flow FiO2 Time Delivery Rate 09/28/18 98.3 58 18 144/75 96 11:33 (98) 09/28/18 Nasal 2.0 08:20 Cannula 09/24/18 21 14:17 Intake and Output 09/27/18 09/27/18 09/28/18 1515:00 23:00 07:00 IntakeIntake Total 850 ml 520 ml OutputOutput Total 800 ml BalanceBalance 50 ml 520 ml Exam PHYSICAL EXAMINATION: GENERAL: Well-nourished, well-developed gentleman, comfortable at rest, in no acute distress. VITAL SIGNS: NECK: Supple. No JVD or lymphadenopathy. CARDIAC: S1, S2. No added sounds or murmurs. CHEST: Diminished air entry bilaterally. ABDOMEN: Soft, nontender. No guarding or rebound. EXTREMITIES: No cyanosis, clubbing, edema. NEUROLOGIC: Grossly intact. No focal deficits. Vent Setting Fraction of Inspired Oxygen pe: 21 Results/Medications Result Diagram: 09/28/18 0654 09/28/18 0654 Results 24 hrs Laboratory Tests Test 09/28/18 00:26 09/28/18 06:54 Creatine Kinase 124 95 Creatine Kinase Index 2.6 3.3 Creatinine Kinase MB (Mass) 3.20 H 3.12 H Troponin I < 0.012 < 0.012 White Blood Count 18.9 H Red Blood Count 4.94 Hemoglobin 14.7 Hematocrit 43.8 Mean Corpuscular Volume 88.7 Mean Corpuscular Hemoglobin 29.8 Mean Corpuscular Hemoglobin Concent 33.6 Red Cell Distribution Width 13.2 Platelet Count 292 # Mean Platelet Volume 12.3 H Immature Granulocytes % 3.000 H Neutrophils % 81.6 H Lymphocytes % 11.4 L Monocytes % 3.7 Eosinophils % 0.0 Basophils % 0.3 Nucleated Red Blood Cells % 0.0 Immature Granulocytes # 0.570 H Neutrophils # 15.5 H Lymphocytes # 2.2 Monocytes # 0.7 Eosinophils # 0.0 Basophils # 0.1 Nucleated Red Blood Cells # 0.0 Sodium Level 141 Potassium Level 4.2 Chloride Level 106 Carbon Dioxide Level 24 Anion Gap 11 Blood Urea Nitrogen 26 H Creatinine 0.76 Est Glomerular Filtrat Rate mL/min Glucose Level 127 Calcium Level 9.0 Triglycerides Level 134 Cholesterol Level 158 LDL Cholesterol, Calculated 93 HDL Cholesterol 38 Cholesterol/HDL Ratio 4.1 Medications Current Medications Levalbuterol (Xopenex Neb) 0.63 mg Q4H RESP THERAPY PRN HHN desaturat Last administered on 09/25/18 05:20; Admin Dose 0.63 MG; Start 09/25/18 at 00:00 Ipratropium [place] (Atrovent 0.02% (Neb)) 0.5 mg Q4H RESP THERAPY PRN HHN SHORTNESS OF BREATH Last administered on 09/25/18 05:20; Admin Dose 0.5 MG; Start 09/25/18 at 00:00 Acetaminophen (Tylenol Tab) 650 mg Q6H PRN PO MILD PAIN(1-3)OR ELEVATED TEMP Last administered on 09/25/18 20:48; Admin Dose 650 MG; Start 09/25/18 at 05:17 IV Flush (NS 3 ml) 3 ml PER PROTOCOL IV ; Start 09/25/18 at 08:30 Ondansetron HCl (Zofran Inj) 4 mg Q6H PRN IV NAUSEA/VOMITING; Start 09/25/18 at 08:30 Heparin Sodium (Porcine) (Heparin (5000 Units/1ml)) 5,000 unit Q12 SC Last administered on 09/28/18 10:05; Admin Dose 5,000 UNIT; Start 09/25/18 at 09:00 Albuterol/ Ipratropium (Duoneb) 3 ml Q2H RESP THERAPY PRN HHN SHORTNESS OF BREATH Last administered on 09/27/18 04:32; Admin Dose 3 ML; Start 09/25/18 at 09:00 Amlodipine Besylate (Norvasc) 10 mg DAILY PO Last administered on 09/28/18 09:23; Admin Dose 10 MG; Start 09/25/18 at 09:00 Atorvastatin Calcium (Lipitor) 20 mg DAILY PO Last administered on 09/28/18 09:22; Admin Dose 20 MG; Start 09/25/18 at 09:00 Benazepril HCl (Lotensin) 40 mg DAILY PO Last administered on 09/28/18 09:23; Admin Dose 40 MG; Start 09/25/18 at 09:00 Fluticasone Propionate (Flonase 0.05% Nasal) 1 spray BID NASAL Last administered on 09/28/18 09:23; Admin Dose 1 SPRAY; Start 09/25/18 at 09:00 Montelukast Sodium (Singulair) 10 mg QHS PO Last administered on 09/27/18 21:54; Admin Dose 10 MG; Start 09/25/18 at 21:00 Pantoprazole (Protonix Tab) 40 mg DAILY@06 PO Last administered on 09/28/18 05:59; Admin Dose 40 MG; Start 09/26/18 at 06:00 Levofloxacin/ Dextrose 100 ml @ 100 mls/hr Q24H IVPB Last administered on 09/27/18 15:51; Admin Dose 100 MLS/HR; Start 09/25/18 at 16:00 Guaifenesin/ Dextromethorphan (Mucinex Dm) 1 tab BID PO Last administered on 09/28/18 09:22; Admin Dose 1 TAB; Start 09/25/18 at 21:00 Azithromycin (Zithromax) 500 mg DAILY PO Last administered on 09/28/18 09:23; Admin Dose 500 MG; Start 09/27/18 at 15:00; Stop 10/02/18 at 14:59 Metoprolol Tartrate (Lopressor) 50 mg BID PO Last administered on 09/28/18 09:22; Admin Dose 50 MG; Start 09/27/18 at 21:00 Furosemide (Lasix) 20 mg DAILY IV Last administered on 09/28/18 09:23; Admin Dose 20 MG; Start 09/28/18 at 09:00 Methylprednisolone Sodium Succinate (Solu-Medrol) 40 mg Q12H IV ; Start 09/28/18 at 18:00 Assessment/Plan Hospital Course (Demo Recall) IMPRESSION AND PLAN: 1. Likely community-acquired pneumonia. With acute bronchospasm. 2. Acute hypoxemic respiratory failure. 3. Underlying possible history of asthma. 4. Bigeminy 5. Leukocytosis likely secondary to steroids Plan 1. Antibiotics, currently on Levaquin. 2. Steroid taper. 3. Bronchodilators. 4. Outpatient pulmonary function testing. 5. DVT and GI prophylaxis. Discharge planning okay from pulmonary standpoint AKBAR GILLIAM MD, [facility] September 28, 2018 11:41
[2018-09-28] MEDS: LEVOFLOXACIN 500MG/D5W (PMX) 100 ML IVPB SCH (15:23)
--- NOTE | 2018-09-28 19:05 | CONS ---
Assessment/Plan Assessment/Plan Hospital Course (Demo Recall) IMPRESSION: 1. Hypertension-slowly improving on oral antihypertensives. 2. Cardiac arrhythmia with bigeminy. Rule out acute coronary syndrome.-neg trop x 3. improved on BB 3. Pneumonia. 4. Chronic obstructive pulmonary disease/asthma. 5. Dyslipidemia. 6. Elevated BNP/congestive heart failure. Recc: -Tele -Continue BB -Contineu norvasc and uptitrate benazepril -Continue steroids/bronchodilators -lasix gentle diuresis -Contineue abx's and f/u cx data Consultation Date/Type/Reason Admit Date/Time September 24, 2018 at 20:57 Initial Consult Date 09/27/18 Type of Consult Cardiology Date/Time of Note DATE: 09/28/18 TIME: 19:01 Exam/Review of Systems Vital Signs Vitals Vital Signs Date Temp Pulse Resp B/P (MAP) Pulse Ox O2 O2 Flow FiO2 Time Delivery Rate 09/28/18 69 16:00 09/28/18 97.5 19 152/70 93 Nasal 2.0 15:30 (97) Cannula 09/24/18 21 14:17 Intake and Output 09/27/18 09/27/18 09/28/18 1515:00 23:00 07:00 IntakeIntake Total 850 ml 520 ml OutputOutput Total 800 ml BalanceBalance 50 ml 520 ml Exam Exam Review of Systems: CONSTITUTIONAL: No fevers, chills. PULMONARY: No sob CARDIOVASCULAR: No chest pain/palpitations GASTROINTESTINAL: No nausea/vomiting. GENITOURINARY: No hematuria/dysuria. MUSCULOSKELETAL: No myagias/arthalgias. PSYCHIATRIC: The patient denies depression. NEUROLOGIC: No weakness Constitutional: alert, oriented Psych: no complaints Head: normocephalic ENMT: mucosa pink and moist Neck: supple, jvd (9 cm water) Respiratory: clear to auscultation Cardiovascular: regular rate and rhythm Gastrointestinal: soft, non-tender Musculoskeletal: muscle tone (normal) Extremities: edema (none) Neurological: other (No focal deficts) Labs Result Diagram: 09/28/18 0654 09/28/18 0654 Results 24hrs Laboratory Tests Test 09/28/18 00:26 09/28/18 06:54 09/28/18 12:18 Creatine Kinase 124 95 85 Creatine Kinase Index 2.6 3.3 3.2 Creatinine Kinase MB (Mass) 3.20 H 3.12 H 2.68 H Troponin I < 0.012 < 0.012 < 0.012 White Blood Count 18.9 H Red Blood Count 4.94 Hemoglobin 14.7 Hematocrit 43.8 Mean Corpuscular Volume 88.7 Mean Corpuscular Hemoglobin 29.8 Mean Corpuscular Hemoglobin Concent 33.6 Red Cell Distribution Width 13.2 Platelet Count 292 # Mean Platelet Volume 12.3 H Immature Granulocytes % 3.000 H Neutrophils % 81.6 H Lymphocytes % 11.4 L Monocytes % 3.7 Eosinophils % 0.0 Basophils % 0.3 Nucleated Red Blood Cells % 0.0 Immature Granulocytes # 0.570 H Neutrophils # 15.5 H Lymphocytes # 2.2 Monocytes # 0.7 Eosinophils # 0.0 Basophils # 0.1 Nucleated Red Blood Cells # 0.0 Sodium Level 141 Potassium Level 4.2 Chloride Level 106 Carbon Dioxide Level 24 Anion Gap 11 Blood Urea Nitrogen 26 H Creatinine 0.76 Est Glomerular Filtrat Rate mL/min Glucose Level 127 Calcium Level 9.0 Triglycerides Level 134 Cholesterol Level 158 LDL Cholesterol, Calculated 93 HDL Cholesterol 38 Cholesterol/HDL Ratio 4.1 Medications Medications Current Medications Levalbuterol (Xopenex Neb) 0.63 mg Q4H RESP THERAPY PRN HHN desaturat Last administered on 09/25/18at 05:20; Admin Dose 0.63 MG; Start 09/25/18 at 00:00 Ipratropium [place] (Atrovent 0.02% (Neb)) 0.5 mg Q4H RESP THERAPY PRN HHN SHORTNESS OF BREATH Last administered on 09/25/18at 05:20; Admin Dose 0.5 MG; Start 09/25/18 at 00:00 Acetaminophen (Tylenol Tab) 650 mg Q6H PRN PO MILD PAIN(1-3)OR ELEVATED TEMP Last administered on 09/25/18at 20:48; Admin Dose 650 MG; Start 09/25/18 at 05:17 IV Flush (NS 3 ml) 3 ml PER PROTOCOL IV ; Start 09/25/18 at 08:30 Ondansetron HCl (Zofran Inj) 4 mg Q6H PRN IV NAUSEA/VOMITING; Start 09/25/18 at 08:30 Heparin Sodium (Porcine) (Heparin (5000 Units/1ml)) 5,000 unit Q12 SC Last administered on 09/28/18 10:05; Admin Dose 5,000 UNIT; Start 09/25/18 at 09:00 Albuterol/ Ipratropium (Duoneb) 3 ml Q2H RESP THERAPY PRN HHN SHORTNESS OF BREATH Last administered on 09/27/18 04:32; Admin Dose 3 ML; Start 09/25/18 at 09:00 Amlodipine Besylate (Norvasc) 10 mg DAILY PO Last administered on 09/28/18 09:23; Admin Dose 10 MG; Start 09/25/18 at 09:00 Atorvastatin Calcium (Lipitor) 20 mg DAILY PO Last administered on 09/28/18 09:22; Admin Dose 20 MG; Start 09/25/18 at 09:00 Benazepril HCl (Lotensin) 40 mg DAILY PO Last administered on 09/28/18 09:23; Admin Dose 40 MG; Start 09/25/18 at 09:00 Fluticasone Propionate (Flonase 0.05% Nasal) 1 spray BID NASAL Last administered on 09/28/18 09:23; Admin Dose 1 SPRAY; Start 09/25/18 at 09:00 Montelukast Sodium (Singulair) 10 mg QHS PO Last administered on 09/27/18 21:54; Admin Dose 10 MG; Start 09/25/18 at 21:00 Pantoprazole (Protonix Tab) 40 mg DAILY@06 PO Last administered on 09/28/18 05:59; Admin Dose 40 MG; Start 09/26/18 at 06:00 Levofloxacin/ Dextrose 100 ml @ 100 mls/hr Q24H IVPB Last administered on 09/28/18 15:23; Admin Dose 100 MLS/HR; Start 09/25/18 at 16:00 Guaifenesin/ Dextromethorphan (Mucinex Dm) 1 tab BID PO Last administered on 09/28/18 09:22; Admin Dose 1 TAB; Start 09/25/18 at 21:00 Azithromycin (Zithromax) 500 mg DAILY PO Last administered on 09/28/18 09:23; Admin Dose 500 MG; Start 09/27/18 at 15:00; Stop 10/02/18 at 14:59 Metoprolol Tartrate (Lopressor) 50 mg BID PO Last administered on 09/28/18 09:22; Admin Dose 50 MG; Start 09/27/18 at 21:00 Furosemide (Lasix) 20 mg DAILY IV Last administered on 09/28/18 09:23; Admin Dose 20 MG; Start 09/28/18 at 09:00 Methylprednisolone Sodium Succinate (Solu-Medrol) 40 mg Q12H IV Last administered on 09/28/18 17:18; Admin Dose 40 MG; Start 09/28/18 at 18:00 GUICHO ANTONIO September 28, 2018 19:05
[2018-09-28] MEDS ORDERED: BENAZEPRIL 20 MG TAB PO SCH (21:00)
[2018-09-28] MEDS: MONTELUKAST 10 MG TAB PO SCH (21:26)
[2018-09-29] VITALS (13 sets, daily range): BP systolic 142–170; BP diastolic 69–85; PULSE 39–83; RESP 18–19
[2018-09-29] MEDS ORDERED: traZODone 50 MG TAB PO ONE (00:30)
[2018-09-29] MEDS: METHYLPREDNISOLONE 40 MG INJ IV SCH ×2 (06:27→17:16)
[2018-09-29] MEDS: PANTOPRAZOLE (EC) 40 MG TAB PO SCH (06:27)
[2018-09-29] MEDS: METOPROLOL 50 MG TAB PO SCH (08:39)
[2018-09-29] MEDS: AZITHROMYCIN 500 MG TAB PO SCH (08:39)
[2018-09-29] MEDS: ATORVASTATIN 20 MG TAB PO SCH (08:40)
[2018-09-29] MEDS: BENAZEPRIL 40 MG TAB PO SCH ×2 (08:40→20:41)
[2018-09-29] MEDS: AMLODIPINE 10 MG TAB PO SCH (08:40)
[2018-09-29] MEDS: FLUTICASONE 0.05% 16 GM NAS SPRAY NASAL SCH ×2 (08:41→20:42)
[2018-09-29] MEDS: FUROSEMIDE 20 MG INJ IV SCH (08:41)
[2018-09-29] MEDS: GUAIFENESIN/DM (SR) TAB PO SCH ×2 (08:41→20:41)
[2018-09-29] MEDS: HEPARIN 5,000 UNIT/1 ML VIAL SC SCH ×2 (08:44→21:02)
--- NOTE | 2018-09-29 10:41 | PN ---
Date/Time of Note Date/Time of Note DATE: 09/29/18 TIME: 10:38 Assessment/Plan VTE Prophylaxis Risk score (from Ns)>0 risk: 4 SCD applied (from Ns): Yes Pharmacological prophylaxis: heparin Lines/Catheters IV [facility] [place] Assessment/Plan Hospital Course SUBJECTIVE: Patient with no further respiratory distress. He is off oxygen. No chest pain or palpitation. OBJECTIVE: Vital signs-see below PHYSICAL EXAM: Constitutional: Adequately built,not in acute distress. HEENT: Head atraumatic and normocephalic. Eyes: Extraocular muscles intact. Anicteric sclerae. Pupils equal bilaterally, reactive to light. NECK: Supple without lymph node. CHEST:wheezing RUL, expiratory. Diminished bibasilar. No wheezing. No rhonchi. HEART: S1, S2. Regular rate and rhythm. ABDOMEN: Soft/non tender with no rebound tenderness. Bowel sounds were present. EXTREMITIES: No cyanosis, clubbing or edema. NEUROLOGIC: Alert and oriented x3. No focal deficit. No sensory deficit. PSYCHOSOCIAL: No signs of depression. INTEGUMENTARY: No open wounds. ASSESSMENT AND PLAN:78 yo M w/htn,asthma,dlp, here with S OB/productive cough/chest congestion x1 week, found to have pneumonia/sepsis Sepsis, likely secondary to pneumonia -Improved clinically. Note leukocytosis could be also part of patient receiving steroids. -Continue ABX, breathing treatments, cough medications Hypoxemic respiratory failure likely secondary to pneumonia/asthma exacerbation -Now stable. Off oxygen -Continue PRN breathing treatments Community acquired pneumonia. -Clinically stable. Continue antimicrobials with stop date placed Abnormal EKG/bigeminy's -This was improved on beta-blockers. However, patient with episode of bradycardia 39 overnight. After discussion with loss prevention leader, will titrate metoprolol dose down to 25 mg twice daily. -Continue telemetry monitoring Essential hypertension -Needs more control. After discussion with loss prevention leader, will increase benazepril to 40 mg twice daily, continue amlodipine 10 mg, decrease metoprolol to 25 mg twice daily secondary to bradycardia and will add hydralazine 50 mg every 8 hour. Asthma exacerbation -With improved wheezing almost resolving. Will de-escalate IV steroids to prednisone in a.m. -Continue breathing treatments/ICH/Singulair/steroids Dyslipidemia -On statin DVT prophylaxis: Heparin. Disposition: Overall patient with improved respiratory status. However he had episodes of bradycardia overnight requiring dose titration of metoprolol. Patient also with suboptimal control of hypertension requiring addition of antihypertensive. We will monitor patient in telemetry for another 24 hours with likely DC planning in a.m. if blood pressure and heart rate remained stable. Patient is seen in collaboration with Dr. Natarajan. Result Diagram: 09/28/18 0654 09/28/18 0654 Results 24hrs Laboratory Tests Test 09/28/18 12:18 Creatine Kinase 85 Creatine Kinase Index 3.2 Creatinine Kinase MB (Mass) 2.68 H Troponin I < 0.012 Exam/Review of Systems Exam Vitals Vital Signs Date Temp Pulse Resp B/P (MAP) Pulse Ox O2 O2 Flow FiO2 Time Delivery Rate 09/29/18 97.6 63 18 170/85 95 07:13 (113) 09/29/18 2.0 04:26 09/28/18 Nasal 23:45 Cannula Intake and Output 09/28/18 09/28/18 09/29/18 1515:00 23:00 07:00 IntakeIntake Total 750 ml 300 ml OutputOutput Total 750 ml BalanceBalance 0 ml 300 ml Results Results 24hrs Laboratory Tests Test 09/28/18 12:18 Creatine Kinase 85 Creatine Kinase Index 3.2 Creatinine Kinase MB (Mass) 2.68 H Troponin I < 0.012 Medications Medication Current Medications Levalbuterol (Xopenex Neb) 0.63 mg Q4H RESP THERAPY PRN HHN desaturat Last administered on 09/25/18at 05:20; Admin Dose 0.63 MG; Start 09/25/18 at 00:00 Ipratropium [place] (Atrovent 0.02% (Neb)) 0.5 mg Q4H RESP THERAPY PRN HHN SHORTNESS OF BREATH Last administered on 09/25/18at 05:20; Admin Dose 0.5 MG; Start 09/25/18 at 00:00 Acetaminophen (Tylenol Tab) 650 mg Q6H PRN PO MILD PAIN(1-3)OR ELEVATED TEMP Last administered on 09/25/18at 20:48; Admin Dose 650 MG; Start 09/25/18 at 05:17 IV Flush (NS 3 ml) 3 ml PER PROTOCOL IV ; Start 09/25/18 at 08:30 Ondansetron HCl (Zofran Inj) 4 mg Q6H PRN IV NAUSEA/VOMITING; Start 09/25/18 at 08:30 Heparin Sodium (Porcine) (Heparin (5000 Units/1ml)) 5,000 unit Q12 SC Last administered on 09/29/18 08:44; Admin Dose 5,000 UNIT; Start 09/25/18 at 09:00 Albuterol/ Ipratropium (Duoneb) 3 ml Q2H RESP THERAPY PRN HHN SHORTNESS OF BREATH Last administered on 09/27/18 04:32; Admin Dose 3 ML; Start 09/25/18 at 09:00 Amlodipine Besylate (Norvasc) 10 mg DAILY PO Last administered on 09/29/18 08:40; Admin Dose 10 MG; Start 09/25/18 at 09:00 Atorvastatin Calcium (Lipitor) 20 mg DAILY PO Last administered on 09/29/18 08:40; Admin Dose 20 MG; Start 09/25/18 at 09:00 Fluticasone Propionate (Flonase 0.05% Nasal) 1 spray BID NASAL Last administered on 09/29/18 08:41; Admin Dose 1 SPRAY; Start 09/25/18 at 09:00 Montelukast Sodium (Singulair) 10 mg QHS PO Last administered on 09/28/18 21:26; Admin Dose 10 MG; Start 09/25/18 at 21:00 Pantoprazole (Protonix Tab) 40 mg DAILY@06 PO Last administered on 09/29/18 06:27; Admin Dose 40 MG; Start 09/26/18 at 06:00 Levofloxacin/ Dextrose 100 ml @ 100 mls/hr Q24H IVPB Last administered on 09/28/18 15:23; Admin Dose 100 MLS/HR; Start 09/25/18 at 16:00 Guaifenesin/ Dextromethorphan (Mucinex Dm) 1 tab BID PO Last administered on 09/29/18 08:41; Admin Dose 1 TAB; Start 09/25/18 at 21:00 Azithromycin (Zithromax) 500 mg DAILY PO Last administered on 09/29/18 08:39; Admin Dose 500 MG; Start 09/27/18 at 15:00; Stop 10/02/18 at 14:59 Furosemide (Lasix) 20 mg DAILY IV Last administered on 09/29/18at 08:41; Admin Dose 20 MG; Start 09/28/18 at 09:00 Methylprednisolone Sodium Succinate (Solu-Medrol) 40 mg Q12H IV Last administered on 09/29/18at 06:27; Admin Dose 40 MG; Start 09/28/18 at 18:00 Benazepril HCl (Lotensin) 40 mg BID PO ; Start 09/29/18 at 21:00 Metoprolol Tartrate (Lopressor) 25 mg BID PO ; Start 09/29/18 at 21:00 Hydralazine HCl (Apresoline) 50 mg Q8 PO ; Start 09/29/18 at 14:00 ROSALIND CORNEJO NP September 29, 2018 10:41
--- NOTE | 2018-09-29 14:33 | CONS ---
Consult Date/Type/Reason Admit Date/Time September 24, 2018 at 20:57 Initial Consult Date Type of Consult Pulmonary Date/Time of Note DATE: 09/29/18 TIME: 14:29 Subjective Patient comfortable no respiratory distress Objective Vital Signs Date Temp Pulse Resp B/P (MAP) Pulse Ox O2 O2 Flow FiO2 Time Delivery Rate 09/29/18 57 12:00 09/29/18 97.6 18 150/80 93 11:01 (103) 09/29/18 Nasal 2.0 08:00 Cannula Intake and Output 09/28/18 09/28/18 09/29/18 1515:00 23:00 07:00 IntakeIntake Total 750 ml 300 ml OutputOutput Total 750 ml BalanceBalance 0 ml 300 ml Exam PHYSICAL EXAMINATION: GENERAL: Well-nourished, well-developed gentleman, comfortable at rest, in no acute distress. VITAL SIGNS: NECK: Supple. No JVD or lymphadenopathy. CARDIAC: S1, S2. No added sounds or murmurs. CHEST: Diminished air entry bilaterally. ABDOMEN: Soft, nontender. No guarding or rebound. EXTREMITIES: No cyanosis, clubbing, edema. NEUROLOGIC: Grossly intact. No focal deficits. Vent Setting Fraction of Inspired Oxygen pe: 21 Results/Medications Result Diagram: 09/28/18 0654 09/28/18 0654 Medications Current Medications Levalbuterol (Xopenex Neb) 0.63 mg Q4H RESP THERAPY PRN HHN desaturat Last administered on 09/25/18at 05:20; Admin Dose 0.63 MG; Start 09/25/18 at 00:00 Ipratropium [place] (Atrovent 0.02% (Neb)) 0.5 mg Q4H RESP THERAPY PRN HHN SHORTNESS OF BREATH Last administered on 09/25/18at 05:20; Admin Dose 0.5 MG; Start 09/25/18 at 00:00 Acetaminophen (Tylenol Tab) 650 mg Q6H PRN PO MILD PAIN(1-3)OR ELEVATED TEMP Last administered on 09/25/18at 20:48; Admin Dose 650 MG; Start 09/25/18 at 05:17 IV Flush (NS 3 ml) 3 ml PER PROTOCOL IV ; Start 09/25/18 at 08:30 Ondansetron HCl (Zofran Inj) 4 mg Q6H PRN IV NAUSEA/VOMITING; Start 09/25/18 at 08:30 Heparin Sodium (Porcine) (Heparin (5000 Units/1ml)) 5,000 unit Q12 SC Last administered on 09/29/18 08:44; Admin Dose 5,000 UNIT; Start 09/25/18 at 09:00 Albuterol/ Ipratropium (Duoneb) 3 ml Q2H RESP THERAPY PRN HHN SHORTNESS OF BREATH Last administered on 09/27/18 04:32; Admin Dose 3 ML; Start 09/25/18 at 09:00 Amlodipine Besylate (Norvasc) 10 mg DAILY PO Last administered on 09/29/18 08:40; Admin Dose 10 MG; Start 09/25/18 at 09:00 Atorvastatin Calcium (Lipitor) 20 mg DAILY PO Last administered on 09/29/18 0 8:40; Admin Dose 20 MG; Start 09/25/18 at 09:00 Fluticasone Propionate (Flonase 0.05% Nasal) 1 spray BID NASAL Last administered on 09/29/18 08:41; Admin Dose 1 SPRAY; Start 09/25/18 at 09:00 Montelukast Sodium (Singulair) 10 mg QHS PO Last administered on 09/28/18 21:26; Admin Dose 10 MG; Start 09/25/18 at 21:00 Pantoprazole (Protonix Tab) 40 mg DAILY@06 PO Last administered on 09/29/18 06:27; Admin Dose 40 MG; Start 09/26/18 at 06:00 Levofloxacin/ Dextrose 100 ml @ 100 mls/hr Q24H IVPB Last administered on 09/28/18 15:23; Admin Dose 100 MLS/HR; Start 09/25/18 at 16:00 Guaifenesin/ Dextromethorphan (Mucinex Dm) 1 tab BID PO Last administered on 09/29/18 08:41; Admin Dose 1 TAB; Start 09/25/18 at 21:00 Azithromycin (Zithromax) 500 mg DAILY PO Last administered on 09/29/18 08:39; Admin Dose 500 MG; Start 09/27/18 at 15:00; Stop 10/02/18 at 14:59 Furosemide (Lasix) 20 mg DAILY IV Last administered on 5/31/19at 08:41; Admin Dose 20 MG; Start 09/28/18 at 09:00 Methylprednisolone Sodium Succinate (Solu-Medrol) 40 mg Q12H IV Last administered on 09/29/18at 06:27; Admin Dose 40 MG; Start 09/28/18 at 18:00; Stop 09/29/18 at 19:00 Benazepril HCl (Lotensin) 40 mg BID PO ; Start 09/29/18 at 21:00 Metoprolol Tartrate (Lopressor) 25 mg BID PO ; Start 09/29/18 at 21:00 Hydralazine HCl (Apresoline) 50 mg Q8 PO Last administered on 09/29/18at 13:37; Admin Dose 50 MG; Start 09/29/18 at 14:00 Prednisone (Prednisone) 40 mg DAILY PO ; Start 09/30/18 at 09:00 Assessment/Plan Hospital Course (Demo Recall) IMPRESSION 1. Likely community-acquired pneumonia. With acute bronchospasm. 2. Acute hypoxemic respiratory failure. 3. Underlying possible history of asthma. 4. Bigeminy 5. Leukocytosis likely secondary to steroids Plan 1. Antibiotics, currently on Levaquin. 2. Steroid taper. 3. Bronchodilators. 4. Outpatient pulmonary function testing. 5. DVT and GI prophylaxis. Discharge planning okay from pulmonary standpoint AKBAR GILLIAM MD, [facility] September 29, 2018 14:33
[2018-09-29] MEDS: LEVALBUTEROL (NEB) 0.63 MG/3 ML AMP HHN PRN (14:36)
[2018-09-29] MEDS: IPRATROPIUM (NEB) 0.5 MG/2.5 ML AMP HHN PRN (14:36)
--- NOTE | 2018-09-29 14:36 | CONS ---
Assessment/Plan Assessment/Plan Hospital Course (Demo Recall) IMPRESSION: 1. Hypertension-slowly improving on oral antihypertensives. 2. Cardiac arrhythmia with bigeminy. Rule out acute coronary syndrome.-neg trop x 3. improved on BB 3. Pneumonia. 4. Chronic obstructive pulmonary disease/asthma. 5. Dyslipidemia. 6. Elevated BNP/congestive heart failure. Recc: -Tele -Continue BB with slight decrease given janki -Contineu norvasc and uptitrate benazepril further -start hydralazine -Continue steroids/bronchodilators -lasix gentle diuresis -Contineue abx's and f/u cx data Consultation Date/Type/Reason Admit Date/Time September 24, 2018 at 20:57 Initial Consult Date 09/27/18 Type of Consult Cardiology Reason for Consultation HTN Requesting Provider: ROSALIND CORNEJO NP Date/Time of Note DATE: 09/29/18 TIME: 14:33 Exam/Review of Systems Vital Signs Vitals Vital Signs Date Temp Pulse Resp B/P (MAP) Pulse Ox O2 O2 Flow FiO2 Time Delivery Rate 09/29/18 57 12:00 09/29/18 97.6 18 150/80 93 11:01 (103) 09/29/18 Nasal 2.0 08:00 Cannula Intake and Output 09/28/18 09/28/18 09/29/18 1515:00 23:00 07:00 IntakeIntake Total 750 ml 300 ml OutputOutput Total 750 ml BalanceBalance 0 ml 300 ml Exam Exam Review of Systems: CONSTITUTIONAL: No fevers, chills. PULMONARY: No sob CARDIOVASCULAR: No chest pain/palpitations GASTROINTESTINAL: No nausea/vomiting. GENITOURINARY: No hematuria/dysuria. MUSCULOSKELETAL: No myagias/arthalgias. PSYCHIATRIC: The patient denies depression. NEUROLOGIC: No weakness Constitutional: alert Psych: no complaints Head: normocephalic ENMT: mucosa pink and moist Neck: supple, jvd Respiratory: diminished breath sounds Cardiovascular: regular rate and rhythm Gastrointestinal: soft, non-tender Musculoskeletal: muscle tone (normal) Extremities: edema (none) Neurological: other (No focal deficits) Labs Result Diagram: 09/28/18 0654 09/28/1854 Medications Medications Current Medications Levalbuterol (Xopenex Neb) 0.63 mg Q4H RESP THERAPY PRN HHN desaturat Last administered on 09/25/18 05:20; Admin Dose 0.63 MG; Start 09/25/18 at 00:00 Ipratropium [place] (Atrovent 0.02% (Neb)) 0.5 mg Q4H RESP THERAPY PRN HHN SHORTNESS OF BREATH Last administered on 09/25/18 05:20; Admin Dose 0.5 MG; Start 09/25/18 at 00:00 Acetaminophen (Tylenol Tab) 650 mg Q6H PRN PO MILD PAIN(1-3)OR ELEVATED TEMP Last administered on 09/25/18 20:48; Admin Dose 650 MG; Start 09/25/18 at 05:17 IV Flush (NS 3 ml) 3 ml PER PROTOCOL IV ; Start 09/25/18 at 08:30 Ondansetron HCl (Zofran Inj) 4 mg Q6H PRN IV NAUSEA/VOMITING; Start 09/25/18 at 08:30 Heparin Sodium (Porcine) (Heparin (5000 Units/1ml)) 5,000 unit Q12 SC Last administered on 09/29/18 08:44; Admin Dose 5,000 UNIT; Start 09/25/18 at 09:00 Albuterol/ Ipratropium (Duoneb) 3 ml Q2H RESP THERAPY PRN HHN SHORTNESS OF BREATH Last administered on 09/27/18 04:32; Admin Dose 3 ML; Start 09/25/18 at 09:00 Amlodipine Besylate (Norvasc) 10 mg DAILY PO Last administered on 09/29/18 08:40; Admin Dose 10 MG; Start 09/25/18 at 09:00 Atorvastatin Calcium (Lipitor) 20 mg DAILY PO Last administered on 09/29/18 08:40; Admin Dose 20 MG; Start 09/25/18 at 09:00 Fluticasone Propionate (Flonase 0.05% Nasal) 1 spray BID NASAL Last administered on 09/29/18 08:41; Admin Dose 1 SPRAY; Start 09/25/18 at 09:00 Montelukast Sodium (Singulair) 10 mg QHS PO Last administered on 09/28/18 21:26; Admin Dose 10 MG; Start 09/25/18 at 21:00 Pantoprazole (Protonix Tab) 40 mg DAILY@06 PO Last administered on 09/29/18 06:27; Admin Dose 40 MG; Start 09/26/18 at 06:00 Levofloxacin/ Dextrose 100 ml @ 100 mls/hr Q24H IVPB Last administered on 09/28/18 15:23; Admin Dose 100 MLS/HR; Start 09/25/18 at 16:00 Guaifenesin/ Dextromethorphan (Mucinex Dm) 1 tab BID PO Last administered on 09/29/18 08:41; Admin Dose 1 TAB; Start 09/25/18 at 21:00 Azithromycin (Zithromax) 500 mg DAILY PO Last administered on 09/29/18 08:39; Admin Dose 500 MG; Start 09/27/18 at 15:00; Stop 10/02/18 at 14:59 Furosemide (Lasix) 20 mg DAILY IV Last administered on 09/29/18 08:41; Admin Dose 20 MG; Start 09/28/18 at 09:00 Methylprednisolone Sodium Succinate (Solu-Medrol) 40 mg Q12H IV Last admin istered on 09/29/18 06:27; Admin Dose 40 MG; Start 09/28/18 at 18:00; Stop 09/29/18 at 19:00 Benazepril HCl (Lotensin) 40 mg BID PO ; Start 09/29/18 at 21:00 Metoprolol Tartrate (Lopressor) 25 mg BID PO ; Start 09/29/18 at 21:00 Hydralazine HCl (Apresoline) 50 mg Q8 PO Last administered on 09/29/18at 13:37; Admin Dose 50 MG; Start 09/29/18 at 14:00 Prednisone (Prednisone) 40 mg DAILY PO ; Start 09/30/18 at 09:00 GUICHO ANTONIO September 29, 2018 14:36
[2018-09-29] MEDS: LEVOFLOXACIN 500MG/D5W (PMX) 100 ML IVPB SCH (17:16)
[2018-09-29] MEDS: MONTELUKAST 10 MG TAB PO SCH (20:41)
[2018-09-29] MEDS: METOPROLOL 25 MG TAB PO SCH (20:42)
[2018-09-30] VITALS (7 sets, daily range): BP systolic 130–179; BP diastolic 70–88; PULSE 60–93; RESP 18–20
[2018-09-30] MEDS: PANTOPRAZOLE (EC) 40 MG TAB PO SCH (05:13)
[2018-09-30] MEDS ORDERED: LEVOFLOXACIN 500 MG TAB PO SCH (06:00)
[2018-09-30] MEDS: FUROSEMIDE 20 MG INJ IV SCH (08:27)
[2018-09-30] MEDS: GUAIFENESIN/DM (SR) TAB PO SCH (08:28)
[2018-09-30] MEDS: METOPROLOL 25 MG TAB PO SCH (08:28)
[2018-09-30] MEDS: AZITHROMYCIN 500 MG TAB PO SCH (08:28)
[2018-09-30] MEDS: BENAZEPRIL 40 MG TAB PO SCH (08:28)
[2018-09-30] MEDS: AMLODIPINE 10 MG TAB PO SCH (08:29)
[2018-09-30] MEDS: ATORVASTATIN 20 MG TAB PO SCH (08:29)
[2018-09-30] MEDS: HEPARIN 5,000 UNIT/1 ML VIAL SC SCH (08:32)
[2018-09-30] MEDS: FLUTICASONE 0.05% 16 GM NAS SPRAY NASAL SCH (08:33)
[2018-09-30] MEDS ORDERED: predniSONE 20 MG TAB PO SCH (09:00)
[2018-09-30] MEDS ORDERED: MED4DP PO (10:10)
[2018-09-30] MEDS ORDERED: METO-448 PO (10:10)
[2018-09-30] MEDS ORDERED: BENA40TA56 PO (10:10)
[2018-09-30] MEDS ORDERED: HYDR-3672 PO (10:10)
[2018-09-30] MEDS ORDERED: LEVO500T10 PO (10:10)
--- NOTE | 2018-09-30 10:17 | PDOCDIS ---
Discharge Instructions CONDITION [id number] Patient Condition: [id number] Stable HOME CARE INSTRUCTIONS: [id number] Diet Instructions: [id number] Low Fat /Cholesterol FOLLOW UP/APPOINTMENTS Follow-up Plan Kevin Ceja MD Specialty: Internal Medicine Office Address: [address] [place] [address] [place], [place] [id number] Office OTHER ORDERS: Other Orders: 1. Resume home medications. Stop taking clonidine. Start taking increased dose of benazepril and hydralazine. Start taking Lopressor. 2. Complete the course of antibiotics and steroids. 3. Follow a low-cholesterol diet. 4. Resume activities as tolerated. 5. Please go to the nearest emergency room if you have significant shortness of breath, persistent fevers, or any other unusual signs/symptoms. 6. Please call and follow-up with your primary care physician in 1 week. If you do not have a primary care physician, please call Dr. Kevin Ceja's office. AVELINA KUMAR NP Sep 30, 2018 10:17
--- NOTE | 2018-09-30 10:33 | DS ---
Date/Time of Note Date/Time of Note DATE: 09/30/18 TIME: 10:30 Discharge Summary Admission/Discharge Info Admit Date/Time September 24, 2018 at 20:57 Discharge Date/Time Discharge Diagnosis 1. S/P sepsis secondary to community acquired pneumonia 2. Hypoxemic respiratory failure likely secondary to pneumonia/asthma exacerbation 3. Community acquired pneumonia. 4. Asthma exacerbation. 5. Abnormal EKG/bigeminy's 6. Essential hypertension 7. Dyslipidemia Patient Condition: Stable Consults 1. Ramirez Joseph MD, Pulmonary. 2. Clayton Ritter MD, Cardiology. Procedures Chest CT IMPRESSION: 1. Mild bibasilar infiltrates predominately in the bronchovascular distribution as well as a small ground-glass opacities consistent with infectious/inflammatory process. 2. Small left-sided pleural effusion. 3. Prominent subcentimeter mediastinal lymph nodes, likely reactive. 4. Marked coronary artery calcifications. 2D Echocardiogram Conclusions: Normal left ventricular systolic function. Normal left ventricular cavity size. Sigmoid septum. Ejection fraction is visually estimated at 60 %. Tissue Doppler/Mitral Doppler indices are consistent with pseudonormalization with mildly elevated left atrial pressure (Stage II diastolic dysfunction). Mild mitral leaflet calcification. Mild mitral annular calcification. Trace mitral regurgitation. Normal appearance of the tricuspid valve. Unable to obtain RVSP due to minimal presence of tricuspid regurgitation. Hx of Present Illness This is a 78-year-old male with past medical history of hypertension, dyslipidemia, and asthma who presented to the emergency room with chief complaint of shortness of breath, congestion, and fever. In the emergency room, the patient was noticed to have sepsis with underlying fever, leukocytosis, and tachycardia. The patient's chest x-ray showed bilateral lower lobe airspace opacities which may represent atelectasis or pneumonia. Provided the patient's history of present illness, his comorbidities, and the diagnostic findings, a clinical decision was made to admit the patient to inpatient setting to have him further evaluated. Hospital Course The patient was started on empiric antimicrobials. Pancultures were obtained. The patient's jamil cultures remained negative. The patient's sepsis was concluded to be secondary to underlying pneumonia. The patient was maintained on fluoroquinolone therapy for underlying community-acquired pneumonia. The patient underwent a chest CT scan on 09/27/2018 that was showing confirmation of pneumonia. The patient had underlying hypoxic respiratory failure secondary to underlying community acquired pneumonia and complicated by underlying asthma exacerbation. The patient was maintained on supplemental oxygen. The patient was maintained on inhaled bronchodilators. The patient was maintained on leukotriene inhibitors. Pulmonology consult was also obtained. The patient responded well to the treatment strategy, although the patient's improvement was not rapid. The patient was noted to have abnormal EKG with bigeminy's. Therefore, the patient was started on beta-cong therapy. A cardiology consult was obtained. The patient's 2D echocardiogram was showing preserved left ejection fraction. The patient's troponins remained negative. After starting the patient on beta- cong therapy, the patient had episodes of bradycardia with a heart rate as low as 39/min. Therefore, the patient's beta-cong dosing was decreased. Meanwhile, the patient's antihypertensives including GUY inhibitors and hydralazine had to be increased to obtain optimal blood pressure control. The patient has underlying dyslipidemia. The patient was maintained on statins. The patient's fasting lipid panel was satisfactory. The patient had a stable hospital course. The patient is stable to be discharged home on oral antibiotics and tapering dose of oral steroids, to be followed up with outpatient primary care physician. Discharge Instructions 1. Resume home medications. Stop taking clonidine. Start taking increased dose of benazepril and hydralazine. Start taking Lopressor. 2. Complete the course of antibiotics and steroids. 3. Follow a low-cholesterol diet. 4. Resume activities as tolerated. 5. Please go to the nearest emergency room if you have significant shortness of breath, persistent fevers, or any other unusual signs/symptoms. 6. Please call and follow-up with your primary care physician in 1 week. If you do not have a primary care physician, please call Dr. Kevin Ceja's office. The patient verbalized understanding of the discharge instructions. At this time I would like to thank all the consultants for seeing the patient and providing clinical recommendations. The patient was seen in collaboration with Dr. Bhatt. Home Meds Active Scripts Methylprednisolone* (Medrol* DOSE PACK) 4 Mg/Dose-Pack Tab.ds.pk, 4 MG PO . DIRECTED, #1 PACKET Prov:AVELINA KUMAR [employer]INE F[employer]EL DOCK ATTENDANT 09/30/18 Levofloxacin* (Levofloxacin*) 500 Mg Tablet, 500 MG PO DAILY for 5 Days, #5 TAB Prov:AVELINA KUMAR [employer]OCK ATTENDANT 09/30/18 Metoprolol Tartrate* (Lopressor*) 25 Mg Tab, 25 MG PO BID, #60 TAB Prov:AVELINA KUMAR [employer] DOCK ATTENDANT 09/30/18 Hydralazine Hcl* (Apresoline*) 50 Mg Tab, 50 MG PO Q8, #60 TAB Prov:AVELINA KUMAR [employer] DOCK ATTENDANT 09/30/18 Benazepril Hcl* (Benazepril Hcl*) 40 Mg Tablet, 40 MG PO BID, #60 TAB Prov:AVELINA KUMAR [employer] ATTENDANT 09/30/18 Amlodipine Besylate* (Amlodipine Besylate*) 10 Mg Tablet, 10 MG PO DAILY, #20 TAB Prov:DEBBIECORBIN 11/05/15 Montelukast Sodium* (Montelukast Sodium*) 10 Mg Tablet, 10 MG PO QHS, #30 TAB Prov:SARAH REDDY [employer] ATTENDANT 05/25/15 Pantoprazole* (Pantoprazole*) 40 Mg Tabec, 40 MG PO DAILY@06 for 30 Days Prov:SARAH REDDY [employer] ATTENDANT 05/25/15 Reported Medications Cholecalciferol* (Vitamin D3*) 1,000 Unit Tablet, 2000 UNIT PO DAILY, TAB 09/24/18 Atorvastatin* (Atorvastatin*) 40 Mg Tablet, 20 MG PO DAILY, #30 TAB 09/24/18 Fluticasone Propionate* (Fluticasone Propionate* Nasal) 50 Mcg/[place] - 16 Gm [place].susp, 1 SPRAY NASAL BID, #1 BOTTLE TO EACH NOSTRIL 09/24/16 Cetirizine Hcl* (Cetirizine Hcl*) 10 Mg Tablet, 10 MG PO DAILY, #30 TAB 09/24/16 Ipratropium-Albuterol (Ipratropium-Albuterol) 0.5-3 Mg/3 Ml Ampul.neb, 3 ML INHALATION QID, #30 VIAL 09/24/16 Albuterol Sulfate* (Ventolin HFA*) 18 Gm Hfa.aer.ad, 2 PUFF INHALATION Q4H, #1 INHALER 09/01/16 Discontinued Reported Medications Clonidine Hcl* (Clonidine Hcl*) 0.2 Mg Tablet, 0.2 MG PO Q8, TAB 09/24/18 Hydralazine Hcl* (Hydralazine Hcl*) 25 Mg Tab, 25 MG PO Q12, #90 TAB 09/24/18 Ranitidine Hcl* (Ranitidine Hcl*) 300 Mg Tablet, 300 MG PO HS, #30 TAB 09/24/16 Discontinued Scripts Albuterol Sulfate* (Ventolin HFA*) 18 Gm Hfa.aer.ad, 2 PUFF INHALATION Q4H PRN for cough/shortness of breath, #1 INHALER Prov:ANNELISE AGUAYO 09/24/18 Levofloxacin* (Levaquin*) 500 Mg Tablet, 500 MG PO DAILY for 7 Days, #7 TAB Prov:ANNELISE AGUAYO DO 09/24/18 Benazepril Hcl* (Lotensin*) 40 Mg Tab, 40 MG PO DAILY for 30 Days, TAB Prov:SARAH REDDY NP 05/25/15 Follow-up Plan Kevin Ceja MD Specialty: Internal Medicine Office Address: [address] [place], [place] [id number] Office Primary Care Provider Sebastián Hutton MD Time spent on discharge: > 30 minutes AVELINA KUMAR NP Sep 30, 2018 10:33
== END 2018-09-30 11:38 | disposition home or self-care (01) | DRG 871 ==
LOC: FTE 12:51 → TEL 20:57 → CANRESERV 21:29
PROVIDERS: ADMIT Internal Medicine; ATTEND Internal Medicine
DX: A41.9 Sepsis, unspecified organism (principal); J18.9 Pneumonia, unspecified organism; J96.01 Acute respiratory failure with hypoxia; J45.901 Unspecified asthma with (acute) exacerbation; I11.0 Hypertensive heart disease with heart failure; I50.9 Heart failure, unspecified; E78.5 Hyperlipidemia, unspecified; R94.31 Abnormal electrocardiogram [ECG] [EKG]; R00.8 Other abnormalities of heart beat
CPT/HCPCS: 36600; 71046; 71250; 80048; 80053; 80061; 81003; 82550; 82553; 82803; 83735; 83880; 84100; 84484; 85025; 87070; 87086; 93005; 93306; 94640; 94664; 96365; J1644; J1940; J1956; J2920; J7030; J7512

== ENCOUNTER 2018-11-08 10:01 | Emergency (ER) | payer OTHER ==
[~2018-11-08] VITALS: Ht 172.7 cm; Wt 89.0 kg
[~2018-11-08 10:01] MED LIST changes: +ATOR40TA68 PO; -BENA40TA54 PO; +BENA40TA56 PO; +CHOL100062 PO; +HYDR-3672 PO; +LEVO500T10 PO; +MED4DP PO; +METO-448 PO; -RANI300T PO
[2018-11-08 10:04] VITALS: Ht 172.7 cm; Wt 89.0 kg
[2018-11-08] MEDS ORDERED: AMLO-147 PO (12:19)
[2018-11-08] MEDS ORDERED: FLUT1AER INHALATION (12:20)
[2018-11-08] MEDS ORDERED: ATOR20TA38 PO (12:20)
[2018-11-08] MEDS ORDERED: BENA40TA56 PO (12:20)
[2018-11-08] MEDS ORDERED: CETI10TA19 PO (12:21)
[2018-11-08] MEDS ORDERED: FLUT16SP17 NASAL (12:21)
[2018-11-08] MEDS ORDERED: IPRA3AMP29 INHALATION (12:22)
[2018-11-08] MEDS ORDERED: HYDR-3672 PO (12:22)
[2018-11-08] MEDS ORDERED: MECL-77 PO (12:24)
[2018-11-08] MEDS ORDERED: METO-448 PO (12:24)
[2018-11-08] MEDS ORDERED: PANT40TA3 PO (12:25)
[2018-11-08] MEDS ORDERED: MONT10TA24 PO (12:25)
[2018-11-08] MEDS ORDERED: RANI300T PO (12:25)
[2018-11-08] MEDS ORDERED: ALBU18HF INHALATION (12:26)
[2018-11-08] MEDS ORDERED: ERGO2000 PO (12:27)
--- NOTE | 2018-11-08 13:19 | ERD ---
ER Documentation Chief Complaint Chief Complaint AP X 1 MOS, WORSEN LAST DAYS HPI 78-year-old male who presents to the emergency room complaining of abdominal pain. The patient notes at least 1 month of abdominal pain with bloating. He states postprandial symptoms but not always. He describes it as dull. No associated nausea vomiting or diarrhea. No fevers or chills. Patient has no significant weight changes or weight loss. He was seen by a clinic today and sent to the emergency room for further evaluation. Translation services were utilized during this patient's encounter Language: Czech Source: In person ROS All systems reviewed and are negative except as per history of present illness. Medications Home Meds Reported Medications Ergocalciferol (Vitamin D2) (VITAMIN D2) 2,000 Unit Tablet, 2000 UNIT PO DAILY, TAB 11/08/18 Albuterol Sulfate* (Ventolin HFA*) 18 Gm Hfa.aer.ad, 2 PUFF INHALATION Q4H, #1 INHALER 11/08/18 Ranitidine Hcl* (Ranitidine Hcl*) 300 Mg Tablet, 300 MG PO HS, #30 TAB 11/08/18 Pantoprazole* (Protonix*) 40 Mg Tablet.dr, 40 MG PO DAILY, TAB 11/08/18 Montelukast Sodium* (Montelukast Sodium*) 10 Mg Tablet, 10 MG PO QHS, #30 TAB 11/08/18 Metoprolol Tartrate* (Lopressor*) 25 Mg Tab, 25 MG PO BID, #60 TAB 11/08/18 Meclizine Hcl* (Meclizine Hcl*) 25 Mg Tablet, 25 MG PO Q8H PRN for DIZZINESS, TAB 11/08/18 Ipratropium-Albuterol (Ipratropium-Albuterol) 0.5-3 Mg/3 Ml Ampul.neb, 3 ML INHALATION Q4 PRN for WHEEZING AND SOB, #30 VIAL 11/08/18 Hydralazine Hcl* (Hydralazine Hcl*) 50 Mg Tab, 50 MG PO TID, #90 TAB 11/08/18 Fluticasone Propionate* (Fluticasone Propionate* Nasal) 50 Mcg/[place] - 16 Gm [place].susp, 2 SPRAYS NASAL DAILY, #1 BOTTLE TO EACH NOSTRIL 11/08/18 Cetirizine Hcl* (Cetirizine Hcl*) 10 Mg Tablet, 10 MG PO DAILY, #30 TAB 11/08/18 Fluticasone-Vilanterol (Breo Ellipta Inhaler) 100-25 Mcg/Actuation Aer.pow.ba, 1 PUFF INHALATION DAILY, #1 INHALER 11/08/18 Benazepril Hcl* (Benazepril Hcl*) 40 Mg Tablet, 40 MG PO DAILY, #30 TAB 11/08/18 Atorvastatin Calcium* (Atorvastatin Calcium*) 20 Mg Tablet, 20 MG PO QHS, #30 TAB 11/08/18 Amlodipine Besylate* (Amlodipine Besylate*) 10 Mg Tablet, 10 MG PO DAILY, #30 TAB 11/08/18 Discontinued Reported Medications Cholecalciferol* (Vitamin D3*) 1,000 Unit Tablet, 2000 UNIT PO DAILY, TAB 09/24/18 Atorvastatin* (Atorvastatin*) 40 Mg Tablet, 20 MG PO DAILY, #30 TAB 09/24/18 Fluticasone Propionate* (Fluticasone Propionate* Nasal) 50 Mcg/[place] - 16 Gm [place].susp, 1 SPRAY NASAL BID, #1 BOTTLE TO EACH NOSTRIL 09/24/16 Cetirizine Hcl* (Cetirizine Hcl*) 10 Mg Tablet, 10 MG PO DAILY, #30 TAB 09/24/16 Ipratropium-Albuterol (Ipratropium-Albuterol) 0.5-3 Mg/3 Ml Ampul.neb, 3 ML INHALATION QID, #30 VIAL 09/24/16 Albuterol Sulfate* (Ventolin HFA*) 18 Gm Hfa.aer.ad, 2 PUFF INHALATION Q4H, #1 INHALER 09/01/16 Discontinued Scripts Methylprednisolone* (Medrol* DOSE PACK) 4 Mg/Dose-Pack Tab.ds.pk, 4 MG PO . DIRECTED, #1 PACKET Prov:AVELINA KUMAR MARKETING PROJECT LEAD 09/30/18 Levofloxacin* (Levofloxacin*) 500 Mg Tablet, 500 MG PO DAILY for 5 Days, #5 TAB Prov:AVELINA KUMAR MARKETING PROJECT LEAD 09/30/18 Metoprolol Tartrate* (Lopressor*) 25 Mg Tab, 25 MG PO BID, #60 TAB Prov:AVELINA KUMAR MARKETING PROJECT LEAD 09/30/18 Hydralazine Hcl* (Apresoline*) 50 Mg Tab, 50 MG PO Q8, #60 TAB Prov:MACIDOAVELINA MARKETING PROJECT LEAD 09/30/18 Benazepril Hcl* (Benazepril Hcl*) 40 Mg Tablet, 40 MG PO BID, #60 TAB Prov:AVELINA KUMAR MARKETING PROJECT LEAD 09/30/18 Amlodipine Besylate* (Amlodipine Besylate*) 10 Mg Tablet, 10 MG PO DAILY, #20 TAB Prov:CORBIN LEWIS DO 11/05/15 Montelukast Sodium* (Montelukast Sodium*) 10 Mg Tablet, 10 MG PO QHS, #30 TAB Prov:SARAH REDDY MARKETING PROJECT LEAD 05/25/15 Pantoprazole* (Pantoprazole*) 40 Mg Tabec, 40 MG PO DAILY@06 for 30 Days Prov:DEMETRIKUSUMSOPHIA BalesSARAH MARKETING PROJECT LEAD 05/25/15 Allergies Allergies: Coded Allergies: Penicillins (Verified Allergy, Unknown, 11/08/18) PMhx/Soc History of Surgery: No Anesthesia Reaction: No Hx Neurological Disorder: No Hx Respiratory Disorders: Yes (asthma) Hx Cardiac Disorders: Yes (high cholesterol , htn ) Hx Psychiatric Problems: No Hx Miscellaneous Medical Probl: Yes (gastritis ) Hx Alcohol Use: No Hx Substance Use: No Hx Tobacco Use: No Smoking Status: Never smoker FmHx Family History: No diabetes Physical Exam Vitals Vital Signs Date Temp Pulse Resp B/P (MAP) Pulse Ox O2 O2 Flow FiO2 Time Delivery Rate 11/08/18 98.1 81 18 156/68 99 Room Air 12:30 (97) 11/08/18 98.1 82 18 103/59 99 10:04 (74) Physical Exam General: Well developed, well nourished, no acute distress Head: Normocephalic, atraumatic. Eyes: Pupils equally reactive, EOM intact ENT: Moist mucous membranes Neck: Supple, no lymphadenopathy Respiratory: Lungs clear bilaterally, no distress Cardiovascular: RRR, no murmurs, rubs, or gallops Abdominal: Soft, protuberant but nontender no rebound or guarding no pulsatile mass : Deferred MSK: No edema, no unilateral swelling, 5/5 strength Neurologic: Alert and oriented, moving all extremities, normal speech, no focal weakness, no cerebellar signs Skin: No rash Psych: Normal mood Result Diagram: 11/08/18 1133 11/08/18 1133 Results 24 hrs Laboratory Tests Test 11/08/18 11:33 White Blood Count 14.9 10^3/ul Red Blood Count 4.67 10^6/ul Hemoglobin 14.2 g/dl Hematocrit 41.7 % Mean Corpuscular Volume 89.3 fl Mean Corpuscular Hemoglobin 30.4 pg Mean Corpuscular Hemoglobin Concent 34.1 g/dl Red Cell Distribution Width 13.8 % Platelet Count 253 10^3/UL Mean Platelet Volume 10.9 fl Immature Granulocytes % 0.300 % Neutrophils % 54.0 % Lymphocytes % 15.7 % Monocytes % 4.9 % Eosinophils % 24.4 % Basophils % 0.7 % Nucleated Red Blood Cells % 0.0 /100WBC Immature Granulocytes # 0.050 10^3/ul Neutrophils # 8.0 10^3/ul Lymphocytes # 2.4 10^3/ul Monocytes # 0.7 10^3/ul Eosinophils # 3.7 10^3/ul Basophils # 0.1 10^3/ul Nucleated Red Blood Cells # 0.0 10^3/ul Urine Color YELLOW Urine Clarity CLEAR Urine pH 6.0 Urine Specific [place] 1.014 Urine Ketones NEGATIVE mg/dL Urine Nitrite NEGATIVE mg/dL Urine Bilirubin NEGATIVE mg/dL Urine Urobilinogen NEGATIVE mg/dL Urine Leukocyte Esterase NEGATIVE Latricia/ul Urine Hemoglobin NEGATIVE mg/dL Urine Glucose NEGATIVE mg/dL Urine Total Protein NEGATIVE mg/dl Sodium Level 143 mmol/L Potassium Level 4.2 mmol/L Chloride Level 109 mmol/L Carbon Dioxide Level 24 mmol/L Anion Gap 10 Blood Urea Nitrogen 12 mg/dl Creatinine 0.90 mg/dl Est Glomerular Filtrat Rate mL/min mL/min Glucose Level 121 mg/dl Calcium Level 9.4 mg/dl Total Bilirubin 1.0 mg/dl Direct Bilirubin 0.00 mg/dl Indirect Bilirubin 1.0 mg/dl Aspartate Amino Transf (AST/SGOT) 26 IU/L Alanine Aminotransferase (ALT/SGPT) 20 IU/L Alkaline Phosphatase 73 IU/L Total Protein 7.5 g/dl Albumin 4.3 g/dl Globulin 3.20 g/dl Albumin/Globulin Ratio 1.34 Lipase 56 U/L [facility]/MDM EKG, MONITORS, & DIAGNOSTIC IMAGING: CT a/p IMPRESSION: Findings consistent with the localized enteritis which may be infectious or inflammatory involving the loop of ileum and this results in mild localized dilatation which adjacent fat stranding and wall thickening with edema along with mild fluid without free air. There is no obstruction or appendicitis. Left lower quadrant spigelian fat-containing hernia is seen with bilateral small fat containing inguinal hernias. There is slight tenting of the bladder dome towards the left inguinal canal without evidence of riddhi herniation. Atherosclerotic disease is present. No renal or ureteral calculi with no evidence of hydronephrosis. Marked reduction of lower lung peribronchial ground-glass opacities with trace residual ground-glass that remains suggestive for residual mild inflammation from a prior infectious or inflammatory process. RPTAT: AA LAB INTERPRETATION: I reviewed the laboratory testing and it shows slight leukocytosis MEDICAL DECISION MAKING: Patient has 1 month of abdominal bloating. His abdominal exam is benign. No fevers or chills nausea vomiting or diarrhea. Unclear etiology. Given the patient's age CT imaging to rule out mass or obstruction would be reasonable but low pretest probability for acute emergent medical condition. ER COURSE: * Patient's laboratory testing is unrevealing other than slight leukocytosis that is nonspecific without left shift. CT imaging as documented above with possible focal enteritis. However the patient does not have focal pain. He has no fever no diarrheal illness no bloody stools. I do not believe the patient's presentation is consistent with infectious or ischemic process. The patient needs outpatient colonoscopy and endoscopy and further evaluation of this process. * Return precautions were discussed and understood but outpatient management would be appropriate. CONSULTATION: None DISPOSITION PLAN: The patient does not have an identifiable emergent medical condition that warrants inpatient hospitalization at this time. The patient is deemed safe for discharge with outpatient follow-up. We discussed follow up with the patient's primary care doctor within 24 to 48 hours as needed. We also discussed return to the emergency room for worsening symptoms or worsening condition. Outpatient referral: Gastroenterology Discharge Medications: None required Departure Diagnosis: Primary Impression: Abdominal pain Abdominal location: generalized Qualified Codes: R10.84 - Generalized abdominal pain Condition: Stable Patient Instructions: Abdominal Pain Referrals: TAI CRAWFORD MD (PCP) BRANDON STOKES MD, GNANA MD Additional Instructions: Llame al doctor marco potts (Referral Sources) MAANA y [place] yifan RAMIRO PARA DENTRO DE YIFAN SEMANA. Dgale a la secretaria que nosotros le instruimos hacer esta ramiro.Avise o llame si whaley condicin se empeora antes de la ramiro. SANDRA COLÓN MD Nov 08, 2018 13:19
[2018-11-08 13:46] VITALS: BP 148/70; PULSE 78; RESP 18
== END 2018-11-08 13:50 | disposition home or self-care (01) ==
LOC: E/R 10:01
DX: R10.84 Generalized abdominal pain (principal); I10 Essential (primary) hypertension; J45.909 Unspecified asthma, uncomplicated
CPT/HCPCS: 36415; 74176; 80053; 81003; 83690; 85025; Z7502

== ENCOUNTER 2018-11-14 13:26 | Emergency (ER) | payer OTHER ==
[~2018-11-14] VITALS: Ht 172.7 cm; Wt 83.3 kg
[~2018-11-14 13:26] MED LIST changes: +ATOR20TA38 PO; -ATOR40TA68 PO; -CHOL100062 PO; +CIPR500T4 PO; +ERGO2000 PO; +FLUT1AER INHALATION; -LEVO500T10 PO; +MECL-77 PO; -MED4DP PO; +METR500T PO; +PANT40TA3 PO; -PANT40TA4 PO; +RANI300T PO
[2018-11-14 13:45] VITALS: Ht 172.7 cm; Wt 83.3 kg
[2018-11-14] MEDS ORDERED: SOD CHLORIDE 0.9% 1,000 ML IV STA (16:28)
[2018-11-14] MEDS ORDERED: morphine 2 MG INJ IV STA (16:28)
[2018-11-14] MEDS ORDERED: SOD CHLORIDE 0.9% 100 ML ONE (17:00)
[2018-11-14] MEDS ORDERED: IOHEXOL 300MG/ML 150 ML BTL ONE (17:00)
[2018-11-14 19:15] VITALS: BP 163/91; PULSE 65; RESP 16
--- NOTE | 2018-12-01 14:31 | ERD ---
ER Documentation Chief Complaint Chief Complaint ABD PAIN WITH VOMITING SINCE YESTERDAY HPI 78-year-old male that was seen on November 08 for similar symptoms. He is presenting with abdominal pain with vomiting for the past 5 days. He has not been getting any better. He is complaining of generalized abdominal pain that is aching, cramping, associated with vomiting and loose bowel movements. Denies any associated fevers or chills. Vomiting and bowel movements are nonbloody. No recent travel. No alleviating or exacerbating factors. Pain is moderate. ROS All systems reviewed and are negative except as per history of present illness. Medications Home Meds Active Scripts Metronidazole* (Flagyl*) 500 Mg Tablet, 500 MG PO TID for 7 Days, TAB Prov:TOM JOHNSON MD 11/14/18 Ciprofloxacin Hcl* (Ciprofloxacin Hcl*) 500 Mg Tablet, 500 MG PO BID for 7 Days, TAB Prov:TOM JOHNSON MD 11/14/18 Reported Medications Ergocalciferol (Vitamin D2) (VITAMIN D2) 2,000 Unit Tablet, 2000 UNIT PO DAILY, TAB 11/08/18 Albuterol Sulfate* (Ventolin HFA*) 18 Gm Hfa.aer.ad, 2 PUFF INHALATION Q4H, #1 INHALER 11/08/18 Ranitidine Hcl* (Ranitidine Hcl*) 300 Mg Tablet, 300 MG PO HS, #30 TAB 11/08/18 Pantoprazole* (Protonix*) 40 Mg Tablet.dr, 40 MG PO DAILY, TAB 11/08/18 Montelukast Sodium* (Montelukast Sodium*) 10 Mg Tablet, 10 MG PO QHS, #30 TAB 11/08/18 Metoprolol Tartrate* (Lopressor*) 25 Mg Tab, 25 MG PO BID, #60 TAB 11/08/18 Meclizine Hcl* (Meclizine Hcl*) 25 Mg Tablet, 25 MG PO Q8H PRN for DIZZINESS, TAB 11/08/18 Ipratropium-Albuterol (Ipratropium-Albuterol) 0.5-3 Mg/3 Ml Ampul.neb, 3 ML INHALATION Q4 PRN for WHEEZING AND SOB, #30 VIAL 11/08/18 Hydralazine Hcl* (Hydralazine Hcl*) 50 Mg Tab, 50 MG PO TID, #90 TAB 11/08/18 Fluticasone Propionate* (Fluticasone Propionate* Nasal) 50 Mcg/[place] - 16 Gm [place].susp, 2 SPRAYS NASAL DAILY, #1 BOTTLE TO EACH NOSTRIL 11/08/18 Cetirizine Hcl* (Cetirizine Hcl*) 10 Mg Tablet, 10 MG PO DAILY, #30 TAB 11/08/18 Fluticasone-Vilanterol (Breo Ellipta Inhaler) 100-25 Mcg/Actuation Aer.pow.ba, 1 PUFF INHALATION DAILY, #1 INHALER 11/08/18 Benazepril Hcl* (Benazepril Hcl*) 40 Mg Tablet, 40 MG PO DAILY, #30 TAB 11/08/18 Atorvastatin Calcium* (Atorvastatin Calcium*) 20 Mg Tablet, 20 MG PO QHS, #30 TAB 11/08/18 Amlodipine Besylate* (Amlodipine Besylate*) 10 Mg Tablet, 10 MG PO DAILY, #30 TAB 11/08/18 Allergies Allergies: Coded Allergies: Penicillins (Verified Allergy, Unknown, 11/14/18) PMhx/Soc History of Surgery: No Anesthesia Reaction: No Hx Neurological Disorder: No Hx Respiratory Disorders: Yes (asthma) Hx Cardiac Disorders: Yes (high cholesterol , htn ) Hx Psychiatric Problems: No Hx Miscellaneous Medical Probl: Yes (gastritis ) Hx Alcohol Use: No Hx Substance Use: No Hx Tobacco Use: No Smoking Status: Never smoker FmHx Family History: No diabetes Physical Exam Physical Exam Const: No acute distress Head: Atraumatic Eyes: Normal Conjunctiva ENT: Normal External Ears, Nose and Mouth. Neck: Full range of motion. No meningismus. Resp: Clear to auscultation bilaterally Cardio: Regular rate and rhythm, no murmurs Abd: Soft, minimal diffuse tenderness with no rebound or guarding, non distended. Normal bowel sounds Skin: No petechiae or rashes Back: No midline or flank tenderness Ext: No cyanosis, or edema Neur: Awake and alert Psych: Normal Mood and Affect Results 24 hrs Laboratory Tests Test 11/14/18 16:37 White Blood Count 15.1 10^3/ul Red Blood Count 4.77 10^6/ul Hemoglobin 14.3 g/dl Hematocrit 42.9 % Mean Corpuscular Volume 89.9 fl Mean Corpuscular Hemoglobin 30.0 pg Mean Corpuscular Hemoglobin Concent 33.3 g/dl Red Cell Distribution Width 13.7 % Platelet Count 235 10^3/UL Mean Platelet Volume 11.3 fl Immature Granulocytes % 0.300 % Neutrophils % % Segmented Neutrophils % (Manual) 42 % Lymphocytes % % Lymphocytes % (Manual) 17 % Monocytes % % Monocytes % (Manual) 6 % Eosinophils % % Eosinophils % (Manual) 34 % Basophils % % Basophils % (Manual) 1 % Nucleated Red Blood Cells % 0.0 /100WBC Immature Granulocytes # 0.040 10^3/ul Neutrophils # 10^3/ul Lymphocytes (Manual) 2.5 10^3/ul Lymphocytes # 10^3/ul Monocytes # 10^3/ul Monocytes # (Manual) 0.9 10^3/ul Eosinophils # 10^3/ul Basophils # 10^3/ul Basophils # (Manual) 0.1 10^3/ul Nucleated Red Blood Cells # 10^3/ul Platelet Estimate NORMAL Polychromasia 1+ Anisocytosis 1+ Microcytosis 1+ Urine Color YELLOW Urine Clarity CLEAR Urine pH 5.0 Urine Specific [place] 1.019 Urine Ketones NEGATIVE mg/dL Urine Nitrite NEGATIVE mg/dL Urine Bilirubin NEGATIVE mg/dL Urine Urobilinogen NEGATIVE mg/dL Urine Leukocyte Esterase NEGATIVE Latricia/ul Urine Hemoglobin NEGATIVE mg/dL Urine Glucose NEGATIVE mg/dL Urine Total Protein NEGATIVE mg/dl Sodium Level 139 mmol/L Potassium Level 3.6 mmol/L Chloride Level 105 mmol/L Carbon Dioxide Level 25 mmol/L Anion Gap 9 Blood Urea Nitrogen 14 mg/dl Creatinine 1.02 mg/dl Est Glomerular Filtrat Rate mL/min mL/min Glucose Level 110 mg/dl Calcium Level 9.3 mg/dl Total Bilirubin 1.1 mg/dl Direct Bilirubin 0.00 mg/dl Indirect Bilirubin 1.1 mg/dl Aspartate Amino Transf (AST/SGOT) 24 IU/L Alanine Aminotransferase (ALT/SGPT) 21 IU/L Alkaline Phosphatase 71 IU/L Total Protein 7.4 g/dl Albumin 4.1 g/dl Globulin 3.30 g/dl Albumin/Globulin Ratio 1.24 Current Medications Medications Dose Sig/Andrea Start Time Status Last (Trade) Ordered Route PRN Stop Time Admin Dose Reason Admin Sodium 1,000 ml @ Q1H STAT 11/14/18 DC 11/14/18 Chloride 1,000 mls/hr IV 16:28 16:50 11/14/18 17:27 Morphine 2 mg ONCE STAT 11/14/18 DC 11/14/18 Sulfate IV 16:28 16:50 (morphine) 11/14/18 16:30 IV Flush 10 ml STK-MED 11/14/18 DC (NS 10 ml) ONCE .ROUTE 17:00 11/14/18 17:01 Sodium 100 ml @ ud STK-MED 11/14/18 DC Chloride ONCE .ROUTE 17:00 11/14/18 17:01 Iohexol 150 ml STK-MED 11/14/18 DC (Omnipaque ONCE .ROUTE 17:00 300mg/ ml) 11/14/18 17:01 Procedures/MDM EMERGENT LABS AND DIAGNOSTIC STUDIES: Lab Results above were reviewed and interpreted by me. CBC: Leukocytosis, only slightly increased when compared to 11/08/2018. No significant anemia CMP: No evidence of clinically significant electrolyte abnormality, acidosis, renal failure, hypoglycemia, liver disease, or biliary obstruction UA: no evidence of infection Radiology Results as interpreted by Radiology below were reviewed by Rufina Johnson MD: CT abdomen and pelvis: Inflamed small bowel in the right abdomen and pelvis, possibly an infectious or inflammatory enteritis. This probably represents the same bowel loop which was inflamed in the prior examination. The extent of inflammation appears slightly increased since the prior examination. Stable central mesenteric lymphadenopathy, probably reactive. Small volume of ascites. Moderate fat-containing left spigelian hernia, small fat-containing umbilical and periumbilical hernias, and small right and small to moderate left fat containing inguinal hernias. Mild atherosclerotic calcifications. Initial Nursing notes reviewed. Previous Medical Records requested via the Electronic Health Record. EMERGENCY DEPARTMENT COURSE / MEDICAL DECISION MAKING: Patient presents with continuous abdominal pain for the past 5 to 6 days. His vitals here are stable and he is afebrile and well-appearing on exam. There is no evidence of sepsis. Doubt ischemic bowel. Doubt dissection. Patient was treated with IV fluids and medications for pain. His CT did show evidence of enteritis which was seen on last CT done 6 days ago. I explained to the patient that this is most likely a viral enteritis. However I cannot rule out a bacterial infection. I did offer him antibiotics, which the patient chose to take. Prescription was given. He was encouraged to follow-up with his primary care doctor if his symptoms are not improving within the next few days. He may have inflammatory bowel disease or some other type of intestinal issue that is not an infection that may need further work-up. Patient understands discharge plan. All questions answered. Encouraged to return if he has any worsening symptoms. Patient's blood pressure was elevated (>120/80) but appears stable without evidence of hypertensive emergency or urgency. The patient was counseled about the risks of hypertension and urged to pursue outpatient monitoring and therapy within a week with their primary care physician. Departure Diagnosis: Primary Impression: Enteritis Condition: Stable Patient Instructions: Abdominal Pain Additional Instructions: Si no estas mejorando en 2-3 barber, [place] yifan robbin con [facility] medico primario. Si estas empeorando, regresa a la danny de emergenicas. TOM JOHNSON MD Dec 01, 2018 14:31
== END 2018-11-14 19:16 | disposition home or self-care (01) ==
LOC: E/R 13:26
DX: K52.9 Noninfective gastroenteritis and colitis, unspecified (principal); J45.909 Unspecified asthma, uncomplicated; I10 Essential (primary) hypertension
CPT/HCPCS: 74177; 80053; 81003; 85025; J2270; J7030; Q9967; Z7610; 36415; 96374